=== PATIENT | female | born 1940 | race Caucasian/White ===

== ENCOUNTER → 2017-08-01 | Outpatient (CLI) | payer MEDICARE ==
--- NOTE | 2017-08-01 14:23 | WOMENS IMAGING REPORT ---
EXAM DESCRIPTION: BONE DENSITY HIP/SPINE COMPLETED DATE/TIME: 08/01/2017 1:40 pm REASON FOR STUDY: AGE-RELATED OSTEOPROSIS; M81.0 M81.0 AGE-RELATED OSTEOPOROSIS W/O CURRENT PATHOLO [facility] COMPARISON: December 2003 TECHNIQUE: Dual-Energy X-ray Absorptiometry (DEXA) of the AP Spine and Hip. LIMITATIONS: None. FINDINGS: LUMBAR SPINE: The bone mineral density (BMD) measured from L1-L4 in the AP projection correlates with a T-score of -2.0, which is osteopenia as defined by the World Health Organization. -5.8% decrease as compared to the previous study HIP: The bone mineral density (BMD) measured in the left hip correlates with a T-score of -3.1, which is o steoporosis as defined by the World Health Organization. IMPRESSION: 1. LUMBAR SPINE: Osteopenia 2. HIP: Osteoporosis COMMENT: The World Health Organization defines low BMD as follows: T-score: Normal: Greater than -1.0 Osteopenia: Between -1.0 and -2.5 Osteoporosis: Less than -2.5 without fractures Established osteoporosis: Less than -2.5 with fractures In general, you may wish to consider: Diagnosis Treatment Follow-up DEXA Normal BMD Prevention 2-3 years Osteopenia Prevention/Therapy 1-2 years Osteoporosis Therapy Yearly TECHNICAL DOCUMENTATION: JOB ID: [id number]- All Rights Reserved
== END ==
LOC: WI 13:07
PROVIDERS: ATTEND Internal Medicine
DX: M81.0 Age-related osteoporosis without current pathological fracture (principal)
CPT/HCPCS: 77080

== ENCOUNTER 2018-01-11 18:41 | Inpatient (IN) | payer MEDICARE ==
--- NOTE | 2018-01-11 19:31 | ER Document Report ---
ED General - General Chief Complaint: Abscess Stated Complaint: ABSCESS ON CHEST Time Seen by Provider: 01/11/18 19:20 Mode of Arrival: Medic Information source: Patient Notes: This is a 77-year-old female history of dementia, irritable bowel syndrome, diverticulitis, arthritis. Patient is a resident of the [facility] and was sent over for evaluation of the neck abscess to the anterior neck/upper chest wall. Patient denies fever. She does state that the area is tender. TRAVEL OUTSIDE OF THE [place] IN LAST 30 DAYS: No - HPI Onset: Last week Onset/Duration: Gradual Quality of pain: Dull Severity: Mild Pain Level: 2 Associated symptoms: denies: Chills, Fever, Shortness of breath Exacerbated by: Denies Relieved by: Denies Similar symptoms previously: Yes Recently seen / treated by doctor: Yes - Related Data Allergies/Adverse Reactions: epinephrine [Epinephrine] Adverse Reaction (Mild, Verified 01/11/18 18:47) jittery Past Medical History - General Information source: Transfer Record - Social History Smoking Status: Unknown if Ever Smoked Cigarette use (# per day): No Chew tobacco use (# tins/day): No Frequency of alcohol use: None Drug Abuse: None Lives with: Other - [facility] Family History: Reviewed & Not Pertinent Patient has suicidal ideation: No Patient has homicidal ideation: No - Past Medical History Cardiac Medical History: Denies: Hx Coronary Artery Disease, Hx Heart Attack, Hx Hypertension Pulmonary Medical History: Reports: Hx COPD, Hx Pneumonia Denies: Hx Asthma, Hx Bronchitis Neurological Medical History: Denies: Hx Cerebrovascular Accident, Hx Seizures Renal/ Medical History: Denies: Hx Peritoneal Dialysis Musculoskeltal Medical History: Reports Hx Arthritis - osteo Past Surgical History: Denies: Hx Hysterectomy - Immunizations Hx Diphtheria, Pertussis, Tetanus Vaccination: Yes Review of Systems - Review of Systems Constitutional: denies: Chills, Fever EENT: No symptoms reported Cardiovascular: No symptoms reported Respiratory: No symptoms reported Gastrointestinal: No symptoms reported Genitourinary: No symptoms reported Female Genitourinary: No symptoms reported Musculoskeletal: No symptoms reported Skin: See HPI Hematologic/Lymphatic: No symptoms reported Neurological/Psychological: No symptoms reported Physical Exam - Vital signs Vitals: Temp Pulse Resp BP Pulse Ox 100.3 F 92 18 140/60 H 95 01/11/18 18:45 01/11/18 18:45 01/11/18 18:45 01/11/18 18:45 01/11/18 18:45 Notes: Physical exam: GENERAL: 77-year-old female, alert and oriented 3, no acute distress HEAD: Atraumatic, normocephalic. EYES: Pupils equal round and reactive to light, extraocular movements intact, sclera anicteric, conjunctiva are normal. ENT: TMs normal, nares patent, oropharynx clear without exudates. Moist mucous membranes. NECK: Normal range of motion, supple without obvious mass. Patient has no stridor. Chest: Patient does have an erythematous area of swelling which is 10 cm in the horizontal and 6 cm in the vertical. It located at the sternal clavicular junction. The area is tender it is not obviously fluctuant. LUNGS: Breath sounds clear to auscultation bilaterally and equal. No wheezes rales or rhonchi. HEART: Regular rate and rhythm without murmurs, rubs or gallops. ABDOMEN: Soft, normoactive bowel sounds. No tenderness to palpation. No guarding, no rebound. No masses appreciated. EXTREMITIES: Normal range of motion, no pitting or edema. No clubbing or cyanosis. NEUROLOGICAL: Cranial nerves II through XII grossly intact. Normal speech, moving all extremities. PSYCH: Normal mood, normal affect. SKIN: Warm, Dry, normal turgor, no rashes or lesions noted. Course - Re-evaluation Re-evalutation: 01/11/18 23:36 Note: This is a 77-year-old female with some dementia and recent skin abscesses that was referred from the [facility] for possible abscess right at the base of the neck/superior chest (sternoclavicular junction). She has no difficulty swallowing, no stridor. I did numb the area and inserted an 18-gauge needle and no pus was obtained. The patient was not very cooperative for the procedure (she does move a lot). Given that she does have fever and overlying erythema I started IV vancomycin for cellulitis. Given the swelling, then it very mass may well be an area of pus underneath, so I will get a CT of the neck. She has had fever and her white count is 16,000. The plan will be to admit her to the medicine service for continued IV antibiotics. If there is an abscess, it most likely require general anesthesia (because of the patient's lack of cooperativeness). Therefore, I have contacted Dr. Liriano to admit the patient overnight with continued IV antibiotics. CT of the neck will be done in the emergency room. And if needed, surgery can be consulted in the morning. Again, there is no acute mass-effect. 01/12/18 00:03 Note: We are waiting for urine analysis. The patient has refused straight cath. - Vital Signs Vital signs: Temp Pulse Resp BP Pulse Ox 99.6 F 92 16 104/75 100 01/11/18 22:01 01/11/18 18:45 01/11/18 23:00 01/11/18 23:00 01/11/18 23:00 - Laboratory Result Diagrams: 01/11/18 20:07 01/11/18 20:07 Laboratory results interpreted by me: 01/11/18 01/11/18 20:07 20:07 WBC 16.2 H RBC 3.44 L Hgb 8.3 L Hct 25.7 L MCV 75 L MCH 24.2 L RDW 15.7 H Plt Count 628 H Seg Neutrophils % 89.3 H Lymphocytes % 5.5 L Absolute Neutrophils 14.4 H Glucose 117 H AST 53 H ALT 55 H Alkaline Phosphatase 191 H Albumin 3.3 L Discharge - Discharge Clinical Impression: Cellulitis Condition: Stable Disposition: ADMITTED INPATIENT Admitting Provider: Deandra Unit Admitted: Medical Floor
[2018-01-11 20:17] LABS: ABSOLUTE EOSINOPHILS # (AUTO) 0.1 10^3/uL (0.0-0.6); ABSOLUTE LYMPHOCYTES (AUTO) 0.9 10^3/uL (0.5-4.7); ABSOLUTE MONOCYTES (AUTO) 0.7 10^3/uL (0.1-1.4); ABSOLUTE NEUT (AUTO) 14.4 10^3/uL (1.7-8.2); BASOPHILS % (AUTO) 0.3 % (0-2); EOSINOPHILS % (AUTO) 0.8 % (0-6); HEMATOCRIT 25.7 % (36.0-47.0); HEMOGLOBIN 8.3 g/dL (12.0-15.5); LYMPHOCYTES % (AUTO) 5.5 % (13-45); MEAN CORPUSCULAR HEMOGLOBIN 24.2 pg (27.0-33.4); MEAN CORPUSCULAR HGB CONC 32.4 g/dL (32.0-36.0); MEAN CORPUSCULAR VOLUME 75 fl (80-97); MONOCYTES % (AUTO) 4.1 % (3-13); PLATELET COUNT 628 10^3/uL (150-450); RED BLOOD COUNT 3.44 10^6/uL (3.72-5.28); RED CELL DISTRIBUTION WIDTH 15.7 % (11.5-14.0); SEGMENTED NEUTROPHILS % (AUTO) 89.3 % (42-78); TOTAL CELLS COUNTED % (AUTO) 100 %; WHITE BLOOD COUNT 16.2 10^3/uL (4.0-10.5)
[2018-01-11 20:26] LABS: INTERNATIONAL RATION (INR) 1.09; PROTHROMBIN TIME 14.7 SEC (11.4-15.4)
[2018-01-11 20:31] LABS: ALANINE AMINOTRANSFERASE 55 U/L (9-52); ALBUMIN 3.3 g/dL (3.5-5.0); ALKALINE PHOSPHATASE 191 U/L (38-126); ANION GAP 12 (5-19); ASPARTATE AMINO TRANSFERASE 53 U/L (14-36); BILIRUBIN,DIRECT 0.3 mg/dL (0.0-0.4); BILIRUBIN,TOTAL 0.3 mg/dL (0.2-1.3); BLOOD UREA NITROGEN 14 mg/dL (7-20); CALCIUM 8.9 mg/dL (8.4-10.2); CARBON DIOXIDE 27 mmol/L (22-30); CHLORIDE 104 mmol/L (98-107); GLUCOSE 117 mg/dL (75-110); POTASSIUM 3.7 mmol/L (3.6-5.0); SODIUM 142.7 mmol/L (137-145); TOTAL PROTEIN 7.4 g/dL (6.3-8.2)
[2018-01-11] MEDS ORDERED: VANCOMYCIN HCL INJ 1000 MG VIAL IV ONE (21:07)
[2018-01-11] MEDS ORDERED: LIDOCAINE 1% INJ-PF (10 MG/ML) 30 ML SDV INJ ONE (23:08)
--- NOTE | 2018-01-12 01:58 | RADIOLOGY REPORT (SQ) ---
EXAM DESCRIPTION: CT SOFT TISSUE NECK WITH CLINICAL HISTORY: 77 years Female, abscess COMPARISON: None. TECHNIQUE: IV contrast. Coronal and sagittal reformat. This exam was performed according to our departmental dose-optimization program, which includes automated exposure control, adjustment of the mA and/or kV according to patient size and/or use of iterative reconstruction technique. FINDINGS: Moderate to severe enlargement of the ventricular system partially imaged and may indicate hydrocephalus. 4 x 4 by 5.4 cm complex heterogeneous mass/collection in the subcutaneous soft tissues at the base of the neck anteriorly, anterior to the trachea just below the level of the thyroid; no drainable fluid collection or abscess. Moderate irregular vertebral endplates and sclerosis at the C5-C6 levels; differential diagnosis includes discitis. No evidence of paraspinal fluid collection. 0.3 cm degenerative C3 anterolisthesis. Moderate disc desiccation between the C4 and C7 levels. 0.2 cm degenerative anterolisthesis at the C3 and C7 levels. 2 cm subpleural cyst in the posterior right upper lobe. 0.5 cm osteoma the right sphenoid sinus. Impression: 1. A 5.4 cm complex mass/collection of the anterior neck. Infectious (such as phlegmon) and neoplastic processes are in the differential diagnosis. 2. Moderate hydrocephalus pattern. 3. Abnormal vertebral endplates at the C5-C6 level. Different diagnosis includes discitis. Recommend contrast MRI of the cervical spine.
[2018-01-12] MEDS ORDERED: AMPICILLIN SOD/SULBACTAM 3 GM VIAL IV PRN (02:47)
[2018-01-12] MEDS ORDERED: NORMAL SALINE 1000 ML 1,000 ML IV PRN (02:48)
[2018-01-12] MEDS ORDERED: AMPICILLIN SODIUM/SULBACTAM NA 3 GM in NORMAL SALINE 100 ML IV ONE (03:00)
[2018-01-12 04:58] LABS: ABSOLUTE BASOPHILS # (AUTO) 0.1 10^3/uL (0.0-0.2); ABSOLUTE EOSINOPHILS # (AUTO) 0.1 10^3/uL (0.0-0.6); ABSOLUTE LYMPHOCYTES (AUTO) 0.9 10^3/uL (0.5-4.7); ABSOLUTE MONOCYTES (AUTO) 0.8 10^3/uL (0.1-1.4); ABSOLUTE NEUT (AUTO) 14.6 10^3/uL (1.7-8.2); BASOPHILS % (AUTO) 0.5 % (0-2); EOSINOPHILS % (AUTO) 0.7 % (0-6); HEMATOCRIT 24.7 % (36.0-47.0); LYMPHOCYTES % (AUTO) 5.6 % (13-45); MEAN CORPUSCULAR HEMOGLOBIN 23.8 pg (27.0-33.4); MEAN CORPUSCULAR HGB CONC 31.8 g/dL (32.0-36.0); MEAN CORPUSCULAR VOLUME 75 fl (80-97); MONOCYTES % (AUTO) 4.9 % (3-13); PLATELET COUNT 606 10^3/uL (150-450); RED CELL DISTRIBUTION WIDTH 15.9 % (11.5-14.0); SEGMENTED NEUTROPHILS % (AUTO) 88.3 % (42-78); TOTAL CELLS COUNTED % (AUTO) 100 %; WHITE BLOOD COUNT 16.6 10^3/uL (4.0-10.5)
[2018-01-12 05:04] LABS: HEMOGLOBIN 7.8 g/dL (12.0-15.5)
[2018-01-12 05:05] LABS: ANION GAP 16 (5-19); BLOOD UREA NITROGEN 14 mg/dL (7-20); CALCIUM 8.6 mg/dL (8.4-10.2); CARBON DIOXIDE 22 mmol/L (22-30); CHLORIDE 103 mmol/L (98-107); GLUCOSE 104 mg/dL (75-110); SODIUM 141.3 mmol/L (137-145)
[2018-01-12] MEDS ORDERED: GLUCAGON,HUMAN RECOMB 1 MG INJ SUBCUT PRN (08:00)
[2018-01-12] MEDS ORDERED: DEXTROSE 50%-WATER 25 GM/50 ML DISP.SYRIN IV PRN ×2 (08:00)
[2018-01-12] MEDS ORDERED: DEXTROSE 40% GEL 15 GM TUBE PO PRN ×2 (08:00)
[2018-01-12 08:18] LABS: ABSOLUTE RETICS # 0.026 10^6/uL (0.028-0.122); RETICULOCYTE COUNT (AUTO) 0.81 % (0.66-2.85)
[2018-01-12 09:06] LABS: IRON(TIBC) < 10.1 ug/dL (37-170)
[2018-01-12] MEDS: AMPICILLIN SODIUM/SULBACTAM NA 3 GM in NORMAL SALINE 100 ML IV SCH ×2 (09:11→22:26)
--- NOTE | 2018-01-12 09:14 | RADIOLOGY REPORT (SQ) ---
EXAM DESCRIPTION: CHEST SINGLE VIEW COMPLETED DATE/TIME: 01/12/2018 9:00 am REASON FOR STUDY: preop COMPARISON: 01/13/2016 EXAM PARAMETERS: NUMBER OF VIEWS: One view. TECHNIQUE: Single frontal radiographic view of the chest acquired. RADIATION DOSE: NA LIMITATIONS: None. FINDINGS: LUNGS AND PLEURA: No opacities, masses or pneumothorax. No pleural effusion. MEDIASTINUM AND HILAR STRUCTURES: No masses. Contour normal. HEART AND VASCULAR STRUCTURES: Heart normal in size. Normal vasculature. BONES: No acute findings. HARDWARE: None in the chest. OTHER: No other significant finding. IMPRESSION: NO ACUTE RADIOGRAPHIC FINDING IN THE CHEST. TECHNICAL DOCUMENTATION: JOB ID: [id number] [employer]- All Rights Reserved Reading location - IP/workstation name: [email or web address]
--- NOTE | 2018-01-12 10:05 | PDOC CONSULTATION ---
Consultation Consult Date: 01/12/18 Consult reason:: Neck abscess History of Present Illness Admission Date/PCP: 01/11/18 23:54 LISSETTE THOMPSON MD History of Present Illness: JORGITO FAULKNER is a 77 year old female This emergency department with a reported history of fever white blood cell count elevation, and CT scan findings consistent with a neck abscess. Patient was admitted to the internal medicine service with surgery consulting. Because of patient's dementia due to massive hydrocephalus, she cannot provide HPI. Past Medical History Cardiac Medical History: Denies: Coronary Artery Disease, Myocardial Infarction, Hypertension Pulmonary Medical History: Reports: Chronic Obstructive Pulmonary Disease (COPD) , Pneumonia Denies: Asthma, Bronchitis Neurological Medical History: Denies: Seizures Musculoskeltal Medical History: Reports: Arthritis - osteo Hematology: Denies: Anemia - hx Past Surgical History Past Surgical History: Denies: Hysterectomy Social History Lives with: Other - [facility] Smoking Status: Unknown if Ever Smoked Frequency of Alcohol Use: None Hx Recreational Drug Use: No Drugs: None Hx Prescription Drug Abuse: No - Advance Directive Resuscitation Status: Full Code Family History Family History: Reviewed & Not Pertinent Parental Family History Reviewed: Yes Children Family History Reviewed: Yes Sibling(s) Family History Reviewed.: Yes Medication/Allergy Allergies/Adverse Reactions: epinephrine [Epinephrine] Adverse Reaction (Mild, Verified 01/11/18 18:47) jittery Review of Systems ROS unobtainable: Due to mental status Physical Exam Vital Signs: Temp Pulse Resp BP Pulse Ox 97.4 F 89 20 125/58 L 96 01/12/18 07:34 01/12/18 07:34 01/12/18 07:34 01/12/18 07:34 01/12/18 07:34 Intake & Output 01/11/18 01/12/18 01/13/18 06:59 06:59 06:59 Intake Total 110 Balance 110 Weight 45.1 kg General appearance: PRESENT: no acute distress, other - However when she arouses she is mildly combative Head exam: PRESENT: atraumatic Teeth exam: PRESENT: poor dentation Respiratory exam: PRESENT: clear to auscultation aaron Cardiovascular exam: PRESENT: RRR Torso Front/Back Image: 1 - Over the lower neck upper chest covering area approximately 6-7 cm is an area, tender soft tissue elevation predominantly over the sternum. These are significant for probable abscess. Results Laboratory Results: 01/12/18 03:49 01/12/18 03:49 01/12/18 01/12/18 01/12/18 03:49 03:49 03:49 WBC 16.6 H RBC 3.30 L Hgb 7.8 L Hct 24.7 L MCV 75 L MCH 23.8 L MCHC 31.8 L RDW 15.9 H Plt Count 606 H Seg Neutrophils % 88.3 H Lymphocytes % 5.6 L Monocytes % 4.9 Eosinophils % 0.7 Basophils % 0.5 Absolute Neutrophils 14.6 H Absolute Lymphocytes 0.9 Absolute Monocytes 0.8 Absolute Eosinophils 0.1 Absolute Basophils 0.1 Retic Count (auto) 0.81 Absolute Retic 0.026 L Sodium 141.3 Potassium 4.0 Chloride 103 Carbon Dioxide 22 Anion Gap 16 BUN 14 Creatinine 0.72 Est GFR ( Amer) > 60 Est GFR (Non-Af Amer) > 60 Glucose 104 Calcium 8.6 Iron TIBC % Saturation Ferritin Vitamin B12 Folate 01/12/18 03:49 WBC RBC Hgb Hct MCV MCH MCHC RDW Plt Count Seg Neutrophils % Lymphocytes % Monocytes % Eosinophils % Basophils % Absolute Neutrophils Absolute Lymphocytes Absolute Monocytes Absolute Eosinophils Absolute Basophils Retic Count (auto) Absolute Retic Sodium Potassium Chloride Carbon Dioxide Anion Gap BUN Creatinine Est GFR ( Amer) Est GFR (Non-Af Amer) Glucose Calcium Iron < 10.1 L TIBC 231 L % Saturation UNABLE TO CALCULATE Ferritin 173.00 Vitamin B12 > 1000.0 H Folate 12.10 Impressions: Chest X-Ray 01/12/18 00:00 IMPRESSION: NO ACUTE RADIOGRAPHIC FINDING IN THE CHEST. Assessment & Plan - Diagnosis (1) Neck abscess Is this a current diagnosis for this admission?: Yes Plan: Clinically and radiographically the patient has a phlegmonous neck abscess involving the soft tissue of the sternal area. This deserves incision drainage and packing. She also has a small abscess front of her left ear. This appears to the resolving. Recommendations: 1. Patient deserves incision drainage packing of the abscess. She cannot provide informed consent. She has no family and we have researched her background and verify this. Therefore we will use implied consent based on the judgment of 2 physicians. I have spoken to Dr. Thompson about the above and he agrees to proceed. 2. The patient's CT scan interpretation of the cervical spine suggested possible discitis. Reviewed the CT scan with Dr. Danis Lee who believes the likelihood of cervical discitis is low. Given the clinical history of anterior neck abscess in need of attention now, as well as the history of dementia agitation and combativeness, we will not proceed with MRI scan of her neck. (2) Hydrocephalus Is this a current diagnosis for this admission?: Yes (3) Severe dementia Is this a current diagnosis for this admission?: Yes Plan: Neck abscess - Time Time Spent: 50 to 70 Minutes Smoking Cessation Education: over 10 minutes Anticipated discharge: SNF - Inpatient Certification Based on my medical assessment, after consideration of the patient's comorbidities, presenting symptoms, or acuity I expect that the services needed warrant INPATIENT care.: Yes I certify that my determination is in accordance with my understanding of Medicare's requirements for reasonable and necessary INPATIENT services [42 CFR 412.3e].: Yes Medical Necessity: Need For IV Fluids, Need for IV Antibiotics, Need for Surgery
[2018-01-12] MEDS ORDERED: LIDOCAINE 1% INJ-PF (10 MG/ML) 30 ML SDV ONE (10:48)
[2018-01-12] MEDS ORDERED: KETAMINE HCL INJ 500 MG/10 ML VIAL ONE (10:50)
[2018-01-12] MEDS ORDERED: FENTANYL CITRATE INJ/PF 100 MCG/2 ML AMPUL ONE (10:51)
[2018-01-12] MEDS ORDERED: PROPOFOL INJ 200 MG/20 ML VIAL IV ONE (10:51)
[2018-01-12] MEDS ORDERED: MIDAZOLAM 2 MG/2 ML INJ ONE (10:51)
--- NOTE | 2018-01-12 12:36 | Operative Report ---
Operative Report DATE OF SURGERY: 01/12/18 PREOPERATIVE DIAGNOSIS: 1. Large anterior neck-chest wall abscess. 2. Draining left preauricular facial abscess POSTOPERATIVE DIAGNOSIS: Same extension to the left para tracheal space OPERATION: 1. Excisional debridement of skin, subcutaneous tissue, breakup of loculations suprasternal area, left paratracheal area. 2. Excisional debridement drainage of left preauricular abscess SURGEON: ANSON RIVERA ANESTHESIA: LMAC TISSUE REMOVED OR ALTERED: Nonviable skin and subcutaneous tissue and pus COMPLICATIONS: None ESTIMATED BLOOD LOSS: 10 cc INTRAOPERATIVE FINDINGS: See below PROCEDURE: Preoperative history: Patient who has a history of dementia was admitted to the internal medicine service with sepsis due to anterior chest wall-neck abscess and spontaneously draining left preauricular abscess. Patient could not provide informed consent so consent was provided by Drs. Rivera and Kuldeep based on the emergent need of the procedure. The patient was taken to the operating room where LMAC anesthesia was used. Arms were abducted, upper anterior chest and neck and left preauricular area was prepped with Betadine. Surgical plan surgical timeout were conducted. The findings on the anterior chest just above the sternum was significant for erythematous edematous tender swelling approximately 8 cm in diameter horizontally and 6 cm vertically. I anesthetized the skin and deeper tissue with 1% plain lidocaine. I made approximately 4-1/2 cm incision with a #15 blade transversely and immediately got into pus. We opened up the deeper tissues bluntly. I use my index finger to break up loculations inferiorly over the anterior chest, specifically the manubrium, as well as above the sternal notch. The infection, creamy pus, oozed out between the subcutaneous tissue and the strap muscles of the neck. There was a small pocket above the right sternoclavicular junction, and a deeper pocket to the left of the trachea. These areas were broken up with finger dissection. Bleeding was minimal. There did not appear to be any communication with the trachea or the esophagus as both structures were deeper and more posterior to the apparent extent of infection. We irrigated out the wound copiously impacted with 1/2 inch iodoform packing. The incision was left open. We then approached the left preauricular abscess which had already spontaneously drained. We need to excise the collapsed overlying nonviable skin with 1% plain lidocaine and excised all the nonviable skin, and curetted out the granulation tissue from the bed of the abscess which is approximately 0.5 x 3 cm x 0.5 cm deep. Wound was irrigated with saline, and packed with iodoform packing. This was applied, patient tolerated the procedure well and taken to recovery in stable condition.
[2018-01-12] MEDS ORDERED: PROMETHAZINE HCL INJ 25 MG/1 ML VIAL IV PRN (12:42)
[2018-01-12] MEDS ORDERED: DIPHENHYDRAMINE HCL 50 MG/ML VIAL IV PRN (12:42)
[2018-01-12] MEDS ORDERED: FENTANYL CITRATE INJ/PF 100 MCG/2 ML AMPUL IV PRN ×3 (12:42)
[2018-01-12] MEDS ORDERED: ONDANSETRON HCL INJ/PF 4 MG/2 ML SDV IV PRN (12:42)
--- NOTE | 2018-01-12 12:56 | EKG REPORT ---
SEVERITY:- NORMAL ECG - SINUS RHYTHM : Confirmed by: Estevan Josue MD 12-Jan-2018 12:54:53
[2018-01-12] MEDS ORDERED: (PENDING PHARMACY ID) (Sennosides [Senna] 17.2 MG) PO PRN (14:04)
[2018-01-12] MEDS ORDERED: LORAZEPAM 0.5 MG TABLET PO PRN (14:04)
[2018-01-12] MEDS ORDERED: SENNOSIDES/DOCUSATE 8.6-50 MG 1 EACH TABLET PO PRN (14:32)
[2018-01-12] MEDS ORDERED: LIDOCAINE 2% INJ-PF (20 MG/ML) 2 ML AMPUL ONE (15:23)
[2018-01-12] MEDS ORDERED: OXYCODONE-ACETAMINOPHEN 5-325 MG TABLET PO PRN (17:40)
[2018-01-12] MEDS ORDERED: (PENDING PHARMACY ID) (Calcium Carbonate/Vitamin D3 [Oyster Shell 500-Vit D3 200 Tb] 1 TAB PO SCH (18:00)
[2018-01-12] MEDS ORDERED: DOCUSATE SODIUM 100 MG CAPSULE PO SCH (18:00)
[2018-01-12] MEDS: CALCIUM CARBONATE 250 MG/VITAMIN D3 125 UNIT TABLET PO SCH (19:39)
[2018-01-12] MEDS: DOCUSATE SODIUM 100 MG CAPSULE PO SCH (19:39)
[2018-01-12] MEDS: FAMOTIDINE 20 MG TABLET PO SCH (19:39)
[2018-01-12] MEDS ORDERED: NORMAL SALINE 250 ML IV PRN ×2 (20:24)
--- NOTE | 2018-01-12 20:24 | PDOC H&P ---
History of Present Illness Admission Date/PCP: 01/11/18 23:54 LISSETTE THOMPSON MD History of Present Illness: JORGITO FAULKNER is a 77 year old female, She has baseline dementia, severe osteoporosis ,undernutrition she was referred from [facility] to the emergency room for evaluation and management of abscess in the anterior chest wall and the neck in the emergency room she was evaluated, CT of the neck was done showed a 4 x 4 x 5.4 cm complex heterogeneous mass/collection in the cutaneous soft tissue at the base of the neck anteriorly. She was also found to have severe leukocytosis, microcytic anemia.Patient is a poor historian, patient could not describe how this abscess started, the duration or the circumstances of the abscess. This morning, consultation was obtained from surgery, she was taken to the OR she underwent excisional debridement of the skin with breakup of loculations in the suprasternal area also was debridement drainage of the left preauricular abscess Past Medical History Pulmonary Medical History: Reports: Chronic Obstructive Pulmonary Disease (COPD) , Pneumonia Endocrine Medical History: Reports: Other - Osteoporosis Musculoskeltal Medical History: Reports: Arthritis - osteo Past Surgical History Past Surgical History: Denies: Hysterectomy Social History Lives with: Other - [facility] Smoking Status: Current Some Day Smoker Frequency of Alcohol Use: None Hx Recreational Drug Use: No Drugs: None Hx Prescription Drug Abuse: No - Advance Directive Resuscitation Status: Full Code Family History Family History: Reviewed & Not Pertinent Parental Family History Reviewed: Yes Children Family History Reviewed: Yes Sibling(s) Family History Reviewed.: Yes Medication/Allergy Home Medications: Acetaminophen [Tylenol Extra Strength 500 mg Tablet] 1,000 mg PO Q8 01/12/18 Alendronate Sodium [Fosamax 10 mg Tablet] 10 mg PO [id number] 01/12/18 Calcium Carbonate/Vitamin D3 [Oyster Shell 500-Vit D3 200 Tb] 1 tab PO BID 01/12 Cetirizine HCl [Zyrtec 10 mg Tablet] 10 mg PO DAILY 01/12/18 Doxycycline Hyclate [Vibramycin] 50 mg PO BID 01/12/18 Famotidine [Pepcid 20 mg Tablet] 20 mg PO BID 01/12/18 Lorazepam [Ativan 0.5 mg Tablet] 0.25 mg PO DAILYP PRN 01/12/18 Memantine HCl [Namenda] 5 mg PO DAILY 01/12/18 Mirtazapine [Remeron 15 mg Tablet] 7.5 mg PO QHS 01/12/18 Multivitamin [Tab-A-Willie (Multiple Vitamin) Tablet] 1 tab PO DAILY 01/12/18 Omeprazole 20 mg PO DAILY 01/12/18 Oxybutynin Chloride [Ditropan 5 mg Tablet] 5 mg PO DAILY 01/12/18 Paroxetine HCl [Paxil 20 mg Tablet] 20 mg PO DAILY 01/12/18 Polyethylene Glycol 3350 [Miralax Powder 17 gm/Packet] 17 gm PO DAILY 01/12/18 Pravastatin Sodium [Pravachol] 40 mg PO DAILY 01/12/18 Sennosides [Senna] 17.2 mg PO DAILYP PRN 01/12/18 Sertraline HCl [Zoloft 50 mg Tablet] 50 mg PO DAILY 01/12/18 Allergies/Adverse Reactions: epinephrine [Epinephrine] Adverse Reaction (Mild, Verified 01/11/18 18:47) jittery Review of Systems Constitutional: ABSENT: chills, fever(s), headache(s), weight gain, weight loss Eyes: ABSENT: visual disturbances Ears: ABSENT: hearing changes Cardiovascular: PRESENT: chest pain. ABSENT: dyspnea on exertion, edema, orthropnea, palpitations Respiratory: ABSENT: cough, hemoptysis Gastrointestinal: ABSENT: as per HPI, abdominal pain, bloating, coffee ground emesis, constipation, diarrhea, dysphagia, heartburn, hematemesis, hematochezia , melena, nausea, vomiting, other Genitourinary: ABSENT: dysuria, hematuria Musculoskeletal: ABSENT: joint swelling Integumentary: ABSENT: rash, wounds Neurological: ABSENT: abnormal gait, abnormal speech, confusion, dizziness, focal weakness, syncope Psychiatric: ABSENT: anxiety, depression, homidical ideation, suicidal ideation Endocrine: ABSENT: cold intolerance, heat intolerance, menstrual abnormalities, polydipsia, polyuria Hematologic/Lymphatic: ABSENT: easy bleeding, easy bruising, lymphadenopathy Physical Exam Vital Signs: Temp Pulse Resp BP Pulse Ox 97.8 F 75 15 120/62 99 01/12/18 19:54 01/12/18 19:54 01/12/18 19:54 01/12/18 19:54 01/12/18 19:54 Intake & Output 01/11/18 01/12/18 01/13/18 06:59 06:59 06:59 Intake Total 110 760 Output Total 5 Balance 110 755 Weight 45.1 kg Head exam: PRESENT: atraumatic, normocephalic Eye exam: PRESENT: PERRLA. ABSENT: scleral icterus Neck exam: PRESENT: other - Abscess in the anterior neck, Respiratory exam: PRESENT: chest wall tenderness, clear to auscultation aaron, other - Abscess in the anterior chest wall Cardiovascular exam: PRESENT: RRR, +S1, +S2 Vascular exam: PRESENT: normal capillary refill GI/Abdominal exam: PRESENT: soft Rectal exam: PRESENT: deferred Neurological exam: PRESENT: alert Skin exam: PRESENT: dry, intact, warm. ABSENT: cyanosis, rash Results Laboratory Results: 01/12/18 03:49 01/12/18 03:49 01/12/18 01/12/18 01/12/18 03:49 03:49 03:49 WBC 16.6 H RBC 3.30 L Hgb 7.8 L Hct 24.7 L MCV 75 L MCH 23.8 L MCHC 31.8 L RDW 15.9 H Plt Count 606 H Seg Neutrophils % 88.3 H Lymphocytes % 5.6 L Monocytes % 4.9 Eosinophils % 0.7 Basophils % 0.5 Absolute Neutrophils 14.6 H Absolute Lymphocytes 0.9 Absolute Monocytes 0.8 Absolute Eosinophils 0.1 Absolute Basophils 0.1 Retic Count (auto) 0.81 Absolute Retic 0.026 L Sodium 141.3 Potassium 4.0 Chloride 103 Carbon Dioxide 22 Anion Gap 16 BUN 14 Creatinine 0.72 Est GFR ( Amer) > 60 Est GFR (Non-Af Amer) > 60 Glucose 104 Calcium 8.6 Iron TIBC % Saturation Ferritin Vitamin B12 Folate 01/12/18 03:49 WBC RBC Hgb Hct MCV MCH MCHC RDW Plt Count Seg Neutrophils % Lymphocytes % Monocytes % Eosinophils % Basophils % Absolute Neutrophils Absolute Lymphocytes Absolute Monocytes Absolute Eosinophils Absolute Basophils Retic Count (auto) Absolute Retic Sodium Potassium Chloride Carbon Dioxide Anion Gap BUN Creatinine Est GFR ( Amer) Est GFR (Non-Af Amer) Glucose Calcium Iron < 10.1 L TIBC 231 L % Saturation UNABLE TO CALCULATE Ferritin 173.00 Vitamin B12 > 1000.0 H Folate 12.10 Impressions: Chest X-Ray 01/12/18 00:00 IMPRESSION: NO ACUTE RADIOGRAPHIC FINDING IN THE CHEST. Assessment & Plan - Diagnosis (1) Neck abscess Is this a current diagnosis for this admission?: Yes Plan: Patient empirically started on IV Unasyn, status post incision and drainage awaiting culture results (2) Chest wall abscess Is this a current diagnosis for this admission?: Yes (3) Iron deficiency anemia Qualifiers: Iron deficiency anemia type: chronic blood loss Qualified Code(s): D50.0 - Iron deficiency anemia secondary to blood loss (chronic) Is this a current diagnosis for this admission?: Yes Plan: Transfuse with 2 units of packed red blood cells, GI consultation will be obtained for colonoscopy and EGD, obtain CEA level (4) Undernutrition Is this a current diagnosis for this admission?: Yes (5) Osteoporosis Qualifiers: Osteoporosis type: age-related (6) Hydrocephalus Is this a current diagnosis for this admission?: Yes (7) Dementia Qualifiers: Dementia type: unspecified type Dementia behavioral disturbance: without behavioral disturbance Qualified Code(s): F03.90 - Unspecified dementia without behavioral disturbance Is this a current diagnosis for this admission?: Yes
[2018-01-12 21:03] LABS: INTERNATIONAL RATION (INR) 1.13; PROTHROMBIN TIME 15.1 SEC (11.4-15.4)
--- NOTE | 2018-01-12 21:15 | RADIOLOGY REPORT (SQ) ---
EXAM DESCRIPTION: MRI CERVICAL SPINE COMBO COMPLETED DATE/TIME: 01/12/2018 7:55 pm REASON FOR STUDY: ? disciitis of the C4-C5 COMPARISON: Correlation made to CT from 01/11/2018 TECHNIQUE: Sagittal and Axial imaging includes T1, T2, STIR and gradient echo sequences. T1 post alvin olinium sequences. CONTRAST TYPE AND DOSE: 10 mL Multihance. RENAL FUNCTION: GFR > 60. LIMITATIONS: Evaluation is limited due to patient motion. FINDINGS: ALIGNMENT: Normal. VERTEBRAE: Intact. BONE MARROW: Benign intraosseous hemangioma seen within the T3 vertebral body. Acute on chronic endp late change at the C5-C6 level additional chronic endplate change at C6-C7. DISCS: Advanced multilevel degenerative disc disease. HARDWARE: None in the spine. CORD AND BASE OF BRAIN: Normal in size and signal intensity. SOFT TISSUES: There is a complex fluid collection noted within the prevertebral space extending from the C2 through C5 levels measuring 1.9 x 1.4 x 6.2 cm (transverse by AP by craniocaudal. Surgical ch lenin involving the anterior soft tissues of the neck compatible with recent debridement. C1-C2: No significant spinal stenosis. C2-C3: Disc osteophyte with uncinate joint hypertrophy resulting in mild to moderate bilateral neural foraminal narrowing. No significant spinal canal stenosis. C3-C4: Disc osteophyte, uncinate joint hypertrophy, and facet arthropathy resulting in at least moder ate bilateral neural foraminal narrowing and mild to moderate spinal canal stenosis. C4-C5: Surgically versus congenitally fused with minimal disc osteophyte and uncinate joint hypertrop hy. No significant spinal canal stenosis or neural foraminal narrowing. C5-C6: Moderate to large diffuse disc osteophyte with bilateral uncinate joint hypertrophy and facet arthropathy. There is at least moderate spinal canal stenosis. There is moderate to severe bilatera l neural foraminal narrowing, left greater than right. C6-C7: Diffuse disc osteophyte and uncinate joint hypertrophy with facet arthropathy. There is moder ate to severe bilateral neural foraminal narrowing. No significant spinal canal stenosis. C7-T1: No significant spinal stenosis or exit foraminal stenosis. UPPER THORACIC: Incompletely imaged. No significant spinal stenosis or exit foraminal stenosis. ENHANCEMENT: Enhancement within the prevertebral soft tissues compatible with phlegmon/ abscess. Min imal enhancement associated with active endplate change C5-C6. OTHER: No other significant finding. IMPRESSION: 6.2 CM COMPLEX FLUID COLLECTION WITHIN THE PREVERTEBRAL SPACE EXTENDING FROM C2-3 C5 COM PATIBLE WITH PHLEGMON/ABSCESS. SURGICAL CONSULTATION IS RECOMMENDED. ADVANCED MULTILEVEL DEGENERATIVE CHANGE OF THE CERVICAL SPINE MOST SEVERE AT THE C3-C4 AND C5-C6 LEVE LS WERE THERE IS AT LEAST MODERATE SPINAL CANAL STENOSIS AND MODERATE SEVERE NEURAL FORAMINAL NARROWI NG. THERE IS ACUTE ON CHRONIC ENDPLATE CHANGE AT C5-C6 WITHOUT DEFINITE MR EVIDENCE OF OSTEOMYELITIS . COMMENT: None. TECHNICAL DOCUMENTATION: JOB ID: [id number] [employer]- All Rights Reserved Reading location - IP/workstation name: [email or web address]
[2018-01-12 21:33] LABS: LIPASE 51.4 U/L (23-300); PHOSPHORUS 3.5 mg/dL (2.5-4.5)
[2018-01-12 21:44] LABS: TROPONIN I < 0.012 ng/mL
[2018-01-12 21:45] LABS: FREE T4 (FREE THYROXINE) 1.33 ng/dL (0.78-2.19)
[2018-01-12 21:59] LABS: THYROID STIMULATING HORMONE 0.82 uIU/mL (0.47-4.68)
[2018-01-12] MEDS ORDERED: (PENDING PHARMACY ID) (Acetaminophen [Tylenol Extra Strength 500 Mg Tablet] 1,000 MG) PO SCH (22:00)
[2018-01-12] MEDS: ACETAMINOPHEN 325 MG TABLET PO SCH (22:24)
[2018-01-12] MEDS: MIRTAZAPINE 15 MG TABLET PO SCH (22:26)
[2018-01-12] MEDS: ATORVASTATIN CALCIUM 10 MG TABLET PO SCH (22:27)
[2018-01-13 02:55] LABS: CREATINE KINASE MB 0.52 ng/mL (<4.55)
[2018-01-13 02:57] LABS: TROPONIN I < 0.012 ng/mL
[2018-01-13] MEDS: LANSOPRAZOLE 15 MG TAB.RAP.DR PO SCH (06:14)
[2018-01-13] MEDS: ACETAMINOPHEN 325 MG TABLET PO SCH ×3 (06:14→23:30)
[2018-01-13] MEDS: AMPICILLIN SODIUM/SULBACTAM NA 3 GM in NORMAL SALINE 100 ML IV SCH ×3 (06:15→23:30)
[2018-01-13 07:21] LABS: HEMATOCRIT 33.4 % (36.0-47.0); MEAN CORPUSCULAR HEMOGLOBIN 26.7 pg (27.0-33.4); MEAN CORPUSCULAR HGB CONC 33.7 g/dL (32.0-36.0); PLATELET COUNT 559 10^3/uL (150-450); RED BLOOD COUNT 4.22 10^6/uL (3.72-5.28); RED CELL DISTRIBUTION WIDTH 16.9 % (11.5-14.0); WHITE BLOOD COUNT 9.1 10^3/uL (4.0-10.5)
[2018-01-13 07:23] LABS: HEMOGLOBIN 11.3 g/dL (12.0-15.5); MEAN CORPUSCULAR VOLUME 79 fl (80-97)
[2018-01-13 07:54] LABS: ABSOLUTE LYMPHOCYTES# (MANUAL) 1.5 10^3/uL (0.5-4.7); ABSOLUTE MONOCYTES # (MANUAL) 0.5 10^3/uL (0.1-1.4); ABSOLUTE NEUTROPHILS# (MANUAL) 6.9 10^3/uL (1.7-8.2); BASOPHILS % (MANUAL) 0 % (0-2); EOSINOPHILS % (MANUAL) 2 % (0-6); LYMPHOCYTES % (MANUAL) 17 % (13-45); MONOCYTES % (MANUAL) 5 % (3-13); SEGMENTED NEUTROPHILS % (MAN) 76 % (42-78); TOTAL CELLS COUNTED 100
[2018-01-13 07:57] LABS: ANISOCYTOSIS 1+; HYPOCHROMASIA SLIGHT; PLATELET CLUMPS PRESENT; PLATELET COMMENT INCREASED; PLATELET LARGE PRESENT
[2018-01-13 08:35] LABS: ALANINE AMINOTRANSFERASE 49 U/L (9-52); ALBUMIN 2.9 g/dL (3.5-5.0); ALKALINE PHOSPHATASE 164 U/L (38-126); ANION GAP 11 (5-19); ASPARTATE AMINO TRANSFERASE 37 U/L (14-36); BILIRUBIN,DIRECT 0.4 mg/dL (0.0-0.4); BILIRUBIN,TOTAL 0.4 mg/dL (0.2-1.3); BLOOD UREA NITROGEN 14 mg/dL (7-20); CALCIUM 8.6 mg/dL (8.4-10.2); CARBON DIOXIDE 26 mmol/L (22-30); CHLORIDE 108 mmol/L (98-107); GLUCOSE 84 mg/dL (75-110); POTASSIUM 3.6 mmol/L (3.6-5.0); SODIUM 144.6 mmol/L (137-145); TOTAL PROTEIN 6.1 g/dL (6.3-8.2)
[2018-01-13 08:46] LABS: CREATINE KINASE MB 0.72 ng/mL (<4.55)
[2018-01-13 08:49] LABS: TROPONIN I < 0.012 ng/mL
[2018-01-13] MEDS: CALCIUM CARBONATE 250 MG/VITAMIN D3 125 UNIT TABLET PO SCH ×2 (09:46→18:14)
[2018-01-13] MEDS: CETIRIZINE 10 MG TABLET PO SCH (09:46)
[2018-01-13] MEDS: PAROXETINE HCL 20 MG TABLET PO SCH (09:46)
[2018-01-13] MEDS: FAMOTIDINE 20 MG TABLET PO SCH ×2 (09:46→18:14)
[2018-01-13] MEDS: DOCUSATE SODIUM 100 MG CAPSULE PO SCH ×2 (09:46→18:14)
[2018-01-13] MEDS: SERTRALINE HCL 50 MG TABLET PO SCH (09:47)
[2018-01-13] MEDS: ALENDRONATE SODIUM 10 MG TABLET PO SCH (09:47)
[2018-01-13] MEDS: OXYBUTYNIN CHLORIDE 5 MG TABLET PO SCH (09:47)
[2018-01-13] MEDS: MULTIVITAMIN TABLET PO SCH (09:48)
[2018-01-13] MEDS: MEMANTINE HCL 10 MG TABLET PO SCH (09:48)
[2018-01-13] MEDS: POLYETHYLENE GLYCOL 3350 POWDER 17 GM/1 PACKET PO SCH (09:48)
[2018-01-13] MEDS: ENOXAPARIN SODIUM INJ 40 MG/0.4 ML DISP.SYRIN SUBCUT SCH (09:49)
[2018-01-13] MEDS ORDERED: (PENDING PHARMACY ID) (Pravastatin Sodium [Pravachol] 40 MG) PO SCH (10:00)
[2018-01-13] MEDS ORDERED: (PENDING PHARMACY ID) (Memantine Hcl [Namenda] 5 MG) PO SCH (10:00)
--- NOTE | 2018-01-13 10:40 | PDOC PROGRESS REPORT ---
Subjective Progress Note for:: 01/13/18 Reason For Visit: ABSCESS IN THE ANTERIOR CHEST WALL AND THE NECK Physical Exam Vital Signs: Temp Pulse Resp BP Pulse Ox 97.7 F 70 18 129/65 H 100 01/13/18 07:52 01/13/18 07:52 01/13/18 07:52 01/13/18 07:52 01/13/18 07:52 Intake & Output 01/12/18 01/13/18 01/14/18 06:59 06:59 06:59 Intake Total 110 1960 Output Total 5 Balance 110 1955 Weight 45.1 kg 50 kg Results Laboratory Results: 01/13/18 06:38 01/13/18 08:00 01/12/18 01/12/18 01/12/18 20:36 20:36 20:36 WBC RBC Hgb Hct MCV MCH MCHC RDW Plt Count Seg Neutrophils % Lymphocytes % Monocytes % Eosinophils % Basophils % Absolute Neutrophils Absolute Lymphocytes Absolute Monocytes Absolute Eosinophils Absolute Basophils Sodium Potassium Chloride Carbon Dioxide Anion Gap BUN Creatinine Est GFR ( Amer) Est GFR (Non-Af Amer) Glucose Calcium Phosphorus 3.5 Magnesium 2.2 Total Bilirubin AST ALT Alkaline Phosphatase Ammonia < 8.7 L Total Protein Albumin Amylase 45 Lipase 51.4 TSH 0.82 Free T4 1.33 Blood Type Antibody Screen 01/12/18 01/13/18 01/13/18 20:55 06:38 06:38 WBC 9.1 RBC 4.22 Hgb 11.3 L D Hct 33.4 L MCV 79 L D MCH 26.7 L MCHC 33.7 RDW 16.9 H Plt Count 559 H Seg Neutrophils % Not Reportable Lymphocytes % Not Reportable Monocytes % Not Reportable Eosinophils % Not Reportable Basophils % Not Reportable Absolute Neutrophils Not Reportable Absolute Lymphocytes Not Reportable Absolute Monocytes Not Reportable Absolute Eosinophils Not Reportable Absolute Basophils Not Reportable Sodium Cancelled Potassium Cancelled Chloride Cancelled Carbon Dioxide Cancelled Anion Gap Cancelled BUN Cancelled Creatinine Cancelled Est GFR ( Amer) Cancelled Est GFR (Non-Af Amer) Cancelled Glucose Cancelled Calcium Cancelled Phosphorus Magnesium Total Bilirubin Cancelled AST Cancelled ALT Cancelled Alkaline Phosphatase Cancelled Ammonia Total Protein Cancelled Albumin Cancelled Amylase Lipase TSH Free T4 Blood Type O POSITIVE Antibody Screen NEGATIVE 01/13/18 08:00 WBC RBC Hgb Hct MCV MCH MCHC RDW Plt Count Seg Neutrophils % Lymphocytes % Monocytes % Eosinophils % Basophils % Absolute Neutrophils Absolute Lymphocytes Absolute Monocytes Absolute Eosinophils Absolute Basophils Sodium 144.6 Potassium 3.6 Chloride 108 H Carbon Dioxide 26 Anion Gap 11 BUN 14 Creatinine 0.74 Est GFR ( Amer) > 60 Est GFR (Non-Af Amer) > 60 Glucose 84 Calcium 8.6 Phosphorus Magnesium Total Bilirubin 0.4 AST 37 H ALT 49 Alkaline Phosphatase 164 H Ammonia Total Protein 6.1 L Albumin 2.9 L Amylase Lipase TSH Free T4 Blood Type Antibody Screen 01/12/18 01/12/18 01/12/18 20:36 20:36 20:36 Creatine Kinase 29 L CK-MB (CK-2) 0.60 Troponin I < 0.012 NT-Pro-B Natriuret Pep 466 H 01/13/18 01/13/18 01/13/18 02:25 02:25 08:00 Creatine Kinase 25 L 26 L CK-MB (CK-2) 0.52 Troponin I < 0.012 NT-Pro-B Natriuret Pep 01/13/18 08:00 Creatine Kinase CK-MB (CK-2) 0.72 Troponin I < 0.012 NT-Pro-B Natriuret Pep Impressions: Cervical Spine MRI 01/12/18 00:00 IMPRESSION: 6.2 CM COMPLEX FLUID COLLECTION WITHIN THE PREVERTEBRAL SPACE EXTENDING FROM C2-3 C5 COMPATIBLE WITH PHLEGMON/ABSCESS. SURGICAL CONSULTATION IS RECOMMENDED. 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 THERE IS ACUTE ON CHRONIC ENDPLATE CHANGE AT C5-C6 WITHOUT DEFINITE MR EVIDENCE OF OSTEOMYELITIS. Chest X-Ray 01/12/18 00:00 IMPRESSION: NO ACUTE RADIOGRAPHIC FINDING IN THE CHEST. Assessment & Plan - Plan Summary Plan Summary: This is a 77-year-old female status post incision and drainage of a chest wall abscess, as well as a left face abscess. The dressing was removed today, and the packing was removed. Abscess cavity is without further purulent drainage. There is no significant erythema or induration present. The cavity was repacked with 4 x 4 gauze. I have instituted damp to dry dressing changes twice daily with packing. Continue antibiotics. Continue dressing changes. Will follow.
--- NOTE | 2018-01-13 17:08 | PDOC PROGRESS REPORT ---
Subjective Progress Note for:: 01/13/18 Subjective:: She was seen by the bedside, yesterday she had incision and drainage of abscesses in the neck and the chest wall, she was also transfused with 2 units of packed red blood cells due to iron deficiency anemia. Reason For Visit: ABSCESS IN THE ANTERIOR CHEST WALL AND THE NECK Physical Exam Vital Signs: Temp Pulse Resp BP Pulse Ox 98.4 F 95 16 117/55 L 98 01/13/18 16:41 01/13/18 16:41 01/13/18 16:41 01/13/18 16:41 01/13/18 16:41 Intake & Output 01/12/18 01/13/18 01/14/18 06:59 06:59 06:59 Intake Total 110 1960 266 Output Total 5 Balance 110 1955 266 Weight 45.1 kg 50 kg General appearance: PRESENT: thin Head exam: PRESENT: atraumatic Eye exam: PRESENT: PERRLA Respiratory exam: PRESENT: clear to auscultation aaron Cardiovascular exam: PRESENT: RRR, +S1, +S2 GI/Abdominal exam: PRESENT: normal bowel sounds, soft Rectal exam: PRESENT: deferred Neurological exam: PRESENT: alert Psychiatric exam: PRESENT: appropriate affect, normal mood Skin exam: PRESENT: dry, intact, warm. ABSENT: cyanosis, rash Results Laboratory Results: 01/13/18 06:38 01/13/18 08:00 01/12/18 01/12/18 01/12/18 03:49 20:36 20:36 WBC RBC Hgb Hct MCV MCH MCHC RDW Plt Count Seg Neutrophils % Lymphocytes % Monocytes % Eosinophils % Basophils % Absolute Neutrophils Absolute Lymphocytes Absolute Monocytes Absolute Eosinophils Absolute Basophils Sodium Potassium Chloride Carbon Dioxide Anion Gap BUN Creatinine Est GFR ( Amer) Est GFR (Non-Af Amer) Glucose Calcium Phosphorus 3.5 Magnesium 2.2 Transferrin 143 L Total Bilirubin AST ALT Alkaline Phosphatase Ammonia Total Protein Albumin Amylase 45 Lipase 51.4 TSH 0.82 Free T4 1.33 Blood Type Antibody Screen 01/12/18 01/12/18 01/13/18 20:36 20:55 06:38 WBC 9.1 RBC 4.22 Hgb 11.3 L D Hct 33.4 L MCV 79 L D MCH 26.7 L MCHC 33.7 RDW 16.9 H Plt Count 559 H Seg Neutrophils % Not Reportable Lymphocytes % Not Reportable Monocytes % Not Reportable Eosinophils % Not Reportable Basophils % Not Reportable Absolute Neutrophils Not Reportable Absolute Lymphocytes Not Reportable Absolute Monocytes Not Reportable Absolute Eosinophils Not Reportable Absolute Basophils Not Reportable Sodium Potassium Chloride Carbon Dioxide Anion Gap BUN Creatinine Est GFR ( Amer) Est GFR (Non-Af Amer) Glucose Calcium Phosphorus Magnesium Transferrin Total Bilirubin AST ALT Alkaline Phosphatase Ammonia < 8.7 L Total Protein Albumin Amylase Lipase TSH Free T4 Blood Type O POSITIVE Antibody Screen NEGATIVE 01/13/18 01/13/18 06:38 08:00 WBC RBC Hgb Hct MCV MCH MCHC RDW Plt Count Seg Neutrophils % Lymphocytes % Monocytes % Eosinophils % Basophils % Absolute Neutrophils Absolute Lymphocytes Absolute Monocytes Absolute Eosinophils Absolute Basophils Sodium Cancelled 144.6 Potassium Cancelled 3.6 Chloride Cancelled 108 H Carbon Dioxide Cancelled 26 Anion Gap Cancelled 11 BUN Cancelled 14 Creatinine Cancelled 0.74 Est GFR ( Amer) Cancelled > 60 Est GFR (Non-Af Amer) Cancelled > 60 Glucose Cancelled 84 Calcium Cancelled 8.6 Phosphorus Magnesium Transferrin Total Bilirubin Cancelled 0.4 AST Cancelled 37 H ALT Cancelled 49 Alkaline Phosphatase Cancelled 164 H Ammonia Total Protein Cancelled 6.1 L Albumin Cancelled 2.9 L Amylase Lipase TSH Free T4 Blood Type Antibody Screen 01/12/18 01/12/18 01/12/18 20:36 20:36 20:36 Creatine Kinase 29 L CK-MB (CK-2) 0.60 Troponin I < 0.012 NT-Pro-B Natriuret Pep 466 H 01/13/18 01/13/18 01/13/18 02:25 02:25 08:00 Creatine Kinase 25 L 26 L CK-MB (CK-2) 0.52 Troponin I < 0.012 NT-Pro-B Natriuret Pep 01/13/18 08:00 Creatine Kinase CK-MB (CK-2) 0.72 Troponin I < 0.012 NT-Pro-B Natriuret Pep Impressions: Cervical Spine MRI 01/12/18 00:00 IMPRESSION: 6.2 CM COMPLEX FLUID COLLECTION WITHIN THE PREVERTEBRAL SPACE EXTENDING FROM C2-3 C5 COMPATIBLE WITH PHLEGMON/ABSCESS. SURGICAL CONSULTATION IS RECOMMENDED. 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 THERE IS ACUTE ON CHRONIC ENDPLATE CHANGE AT C5-C6 WITHOUT DEFINITE MR EVIDENCE OF OSTEOMYELITIS. Chest X-Ray 01/12/18 00:00 IMPRESSION: NO ACUTE RADIOGRAPHIC FINDING IN THE CHEST. 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 Qualified Code(s): D50.0 - Iron deficiency anemia secondary to blood loss (chronic) Is this a current diagnosis for this admission?: Yes (4) Undernutrition Is this a current diagnosis for this admission?: Yes (5) Osteoporosis Qualifiers: Osteoporosis type: age-related Is this a current diagnosis for this admission?: Yes (6) Hydrocephalus Is this a current diagnosis for this admission?: Yes (7) Dementia Qualifiers: Dementia type: unspecified type Dementia behavioral disturbance: without behavioral disturbance Qualified Code(s): F03.90 - Unspecified dementia without behavioral disturbance Is this a current diagnosis for this admission?: Yes - Plan Summary Plan Summary: Continue treatment
[2018-01-13] MEDS: ATORVASTATIN CALCIUM 10 MG TABLET PO SCH (23:30)
[2018-01-13] MEDS: MIRTAZAPINE 15 MG TABLET PO SCH (23:31)
[2018-01-14] MEDS: AMPICILLIN SODIUM/SULBACTAM NA 3 GM in NORMAL SALINE 100 ML IV SCH (06:27)
[2018-01-14] MEDS: LANSOPRAZOLE 15 MG TAB.RAP.DR PO SCH (06:28)
[2018-01-14] MEDS: ACETAMINOPHEN 325 MG TABLET PO SCH ×3 (06:28→23:00)
[2018-01-14 07:11] LABS: HEMATOCRIT 30.7 % (36.0-47.0); HEMOGLOBIN 10.2 g/dL (12.0-15.5); MEAN CORPUSCULAR HGB CONC 33.3 g/dL (32.0-36.0); MEAN CORPUSCULAR VOLUME 78 fl (80-97); PLATELET COUNT 520 10^3/uL (150-450); RED BLOOD COUNT 3.93 10^6/uL (3.72-5.28); RED CELL DISTRIBUTION WIDTH 16.7 % (11.5-14.0); WHITE BLOOD COUNT 7.2 10^3/uL (4.0-10.5)
[2018-01-14 07:55] LABS: ABSOLUTE LYMPHOCYTES# (MANUAL) 1.9 10^3/uL (0.5-4.7); ABSOLUTE MONOCYTES # (MANUAL) 0.4 10^3/uL (0.1-1.4); ABSOLUTE NEUTROPHILS# (MANUAL) 4.3 10^3/uL (1.7-8.2); BASOPHILS % (MANUAL) 3 % (0-2); EOSINOPHILS % (MANUAL) 4 % (0-6); LYMPHOCYTES % (MANUAL) 27 % (13-45); MONOCYTES % (MANUAL) 6 % (3-13); SEGMENTED NEUTROPHILS % (MAN) 60 % (42-78); TOTAL CELLS COUNTED 100
[2018-01-14 07:57] LABS: ANISOCYTOSIS 1+; HYPOCHROMASIA SLIGHT; OVALOCYTES SLIGHT; POIKILOCYTOSIS SLIGHT; POLYCHROMASIA SLIGHT
[2018-01-14 07:58] LABS: PLATELET COMMENT INCREASED; PLATELET LARGE PRESENT
[2018-01-14] MEDS: CALCIUM CARBONATE 250 MG/VITAMIN D3 125 UNIT TABLET PO SCH ×2 (09:26→18:08)
[2018-01-14] MEDS: ALENDRONATE SODIUM 10 MG TABLET PO SCH (09:26)
[2018-01-14] MEDS: CETIRIZINE 10 MG TABLET PO SCH (09:26)
[2018-01-14] MEDS: FAMOTIDINE 20 MG TABLET PO SCH ×2 (09:26→18:08)
[2018-01-14] MEDS: POLYETHYLENE GLYCOL 3350 POWDER 17 GM/1 PACKET PO SCH (09:27)
[2018-01-14] MEDS: PAROXETINE HCL 20 MG TABLET PO SCH (09:27)
[2018-01-14] MEDS: DOCUSATE SODIUM 100 MG CAPSULE PO SCH ×2 (09:27→18:08)
[2018-01-14] MEDS: MULTIVITAMIN TABLET PO SCH (09:27)
[2018-01-14] MEDS: OXYBUTYNIN CHLORIDE 5 MG TABLET PO SCH (09:27)
[2018-01-14] MEDS: MEMANTINE HCL 10 MG TABLET PO SCH (09:27)
[2018-01-14] MEDS: SERTRALINE HCL 50 MG TABLET PO SCH (09:27)
[2018-01-14] MEDS: ENOXAPARIN SODIUM INJ 40 MG/0.4 ML DISP.SYRIN SUBCUT SCH (09:28)
--- NOTE | 2018-01-14 10:07 | PDOC PROGRESS REPORT ---
Subjective Reason For Visit: ABSCESS IN THE ANTERIOR CHEST WALL AND THE NECK Physical Exam Vital Signs: Temp Pulse Resp BP Pulse Ox 98.1 F 61 14 150/79 H 98 01/14/18 07:57 01/14/18 07:57 01/14/18 07:57 01/14/18 07:57 01/14/18 07:57 Intake & Output 01/13/18 01/14/18 01/15/18 06:59 06:59 06:59 Intake Total 1959 2072 Output Total Balance 1954 2072 Weight 50 kg 49.8 kg Results Laboratory Results: 01/14/18 05:57 01/13/18 08:00 01/12/18 01/14/18 03:49 05:57 WBC 7.2 RBC 3.93 Hgb 10.2 L Hct 30.7 L MCV 78 L MCH 26.0 L MCHC 33.3 RDW 16.7 H Plt Count 520 H Seg Neutrophils % Not Reportable Lymphocytes % Not Reportable Monocytes % Not Reportable Eosinophils % Not Reportable Basophils % Not Reportable Absolute Neutrophils Not Reportable Absolute Lymphocytes Not Reportable Absolute Monocytes Not Reportable Absolute Eosinophils Not Reportable Absolute Basophils Not Reportable Transferrin 143 L 01/12/18 01/12/18 01/12/18 20:36 20:36 20:36 Creatine Kinase 29 L CK-MB (CK-2) 0.60 Troponin I < 0.012 NT-Pro-B Natriuret Pep 466 H 01/13/18 01/13/18 01/13/18 02:25 02:25 08:00 Creatine Kinase 25 L 26 L CK-MB (CK-2) 0.52 Troponin I < 0.012 NT-Pro-B Natriuret Pep 01/13/18 08:00 Creatine Kinase CK-MB (CK-2) 0.72 Troponin I < 0.012 NT-Pro-B Natriuret Pep Impressions: Cervical Spine MRI 01/12/18 00:00 IMPRESSION: 6.2 CM COMPLEX FLUID COLLECTION WITHIN THE PREVERTEBRAL SPACE EXTENDING FROM C2-3 C5 COMPATIBLE WITH PHLEGMON/ABSCESS. SURGICAL CONSULTATION IS RECOMMENDED. 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 THERE IS ACUTE ON CHRONIC ENDPLATE CHANGE AT C5-C6 WITHOUT DEFINITE MR EVIDENCE OF OSTEOMYELITIS. Chest X-Ray 01/12/18 00:00 IMPRESSION: NO ACUTE RADIOGRAPHIC FINDING IN THE CHEST. Assessment & Plan - Plan Summary Plan Summary: 77-year-old female status post incision and drainage of a large chest wall abscess. Her white blood cell count is normal, she is afebrile, and she is doing well. Her cultures show Streptococcus. I will transition the patient to oral antibiotics. Continue damp to dry dressing changes twice daily with packing. The patient is cleared for discharge from a surgical standpoint. Follow-up with [facility] in 1 week. I will see the patient again on an as-needed basis. Please contact me with any new questions or concerns.
[2018-01-14] MEDS: SULFAMETHOXAZOLE/TRIMETHOPRIM 800-160 MG TABLET PO SCH ×2 (11:15→18:09)
--- NOTE | 2018-01-14 12:23 | PDOC PROGRESS REPORT ---
Subjective Progress Note for:: 01/14/18 Subjective:: She has iron deficiency anemia status post blood transfusion, she lives in [facility] she would need a colonoscopy on or EGD for further evaluation of the deficiency anemia before she is discharge Reason For Visit: ABSCESS IN THE ANTERIOR CHEST WALL AND THE NECK Physical Exam Vital Signs: Temp Pulse Resp BP Pulse Ox 98.1 F 61 14 150/79 H 98 01/14/18 07:57 01/14/18 07:57 01/14/18 07:57 01/14/18 07:57 01/14/18 07:57 Intake & Output 01/13/18 01/14/18 01/15/18 06:59 06:59 06:59 Intake Total 1959 2072 300 Output Total 100 Balance 1954 2072 200 Weight 50 kg 49.8 kg General appearance: PRESENT: no acute distress Eye exam: PRESENT: PERRLA Respiratory exam: PRESENT: clear to auscultation aaron Cardiovascular exam: PRESENT: +S1, +S2 GI/Abdominal exam: PRESENT: soft Neurological exam: PRESENT: alert Results Laboratory Results: 01/14/18 05:57 01/13/18 08:00 01/14/18 05:57 WBC 7.2 RBC 3.93 Hgb 10.2 L Hct 30.7 L MCV 78 L MCH 26.0 L MCHC 33.3 RDW 16.7 H Plt Count 520 H Seg Neutrophils % Not Reportable Lymphocytes % Not Reportable Monocytes % Not Reportable Eosinophils % Not Reportable Basophils % Not Reportable Absolute Neutrophils Not Reportable Absolute Lymphocytes Not Reportable Absolute Monocytes Not Reportable Absolute Eosinophils Not Reportable Absolute Basophils Not Reportable 01/12/18 01/12/18 01/12/18 20:36 20:36 20:36 Creatine Kinase 29 L CK-MB (CK-2) 0.60 Troponin I < 0.012 NT-Pro-B Natriuret Pep 466 H 01/13/18 01/13/18 01/13/18 02:25 02:25 08:00 Creatine Kinase 25 L 26 L CK-MB (CK-2) 0.52 Troponin I < 0.012 NT-Pro-B Natriuret Pep 01/13/18 08:00 Creatine Kinase CK-MB (CK-2) 0.72 Troponin I < 0.012 NT-Pro-B Natriuret Pep Impressions: Cervical Spine MRI 01/12/18 00:00 IMPRESSION: 6.2 CM COMPLEX FLUID COLLECTION WITHIN THE PREVERTEBRAL SPACE EXTENDING FROM C2-3 C5 COMPATIBLE WITH PHLEGMON/ABSCESS. SURGICAL CONSULTATION IS RECOMMENDED. 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 THERE IS ACUTE ON CHRONIC ENDPLATE CHANGE AT C5-C6 WITHOUT DEFINITE MR EVIDENCE OF OSTEOMYELITIS. Chest X-Ray 01/12/18 00:00 IMPRESSION: NO ACUTE RADIOGRAPHIC FINDING IN THE CHEST. 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 Qualified Code(s): D50.0 - Iron deficiency anemia secondary to blood loss (chronic) Is this a current diagnosis for this admission?: Yes (4) Undernutrition Is this a current diagnosis for this admission?: Yes (5) Osteoporosis Qualifiers: Osteoporosis type: age-related Is this a current diagnosis for this admission?: Yes (6) Hydrocephalus Is this a current diagnosis for this admission?: Yes (7) Dementia Qualifiers: Dementia type: unspecified type Dementia behavioral disturbance: without behavioral disturbance Qualified Code(s): F03.90 - Unspecified dementia without behavioral disturbance Is this a current diagnosis for this admission?: Yes
[2018-01-14] MEDS: MIRTAZAPINE 15 MG TABLET PO SCH (23:00)
[2018-01-14] MEDS: ATORVASTATIN CALCIUM 10 MG TABLET PO SCH (23:00)
[2018-01-15 06:45] LABS: HEMATOCRIT 31.3 % (36.0-47.0); HEMOGLOBIN 10.4 g/dL (12.0-15.5); MEAN CORPUSCULAR HEMOGLOBIN 25.9 pg (27.0-33.4); MEAN CORPUSCULAR HGB CONC 33.3 g/dL (32.0-36.0); MEAN CORPUSCULAR VOLUME 78 fl (80-97); PLATELET COUNT 500 10^3/uL (150-450); RED BLOOD COUNT 4.02 10^6/uL (3.72-5.28); RED CELL DISTRIBUTION WIDTH 17.3 % (11.5-14.0); WHITE BLOOD COUNT 6.1 10^3/uL (4.0-10.5)
[2018-01-15 07:11] LABS: ABSOLUTE LYMPHOCYTES# (MANUAL) 0.9 10^3/uL (0.5-4.7); ABSOLUTE MONOCYTES # (MANUAL) 0.7 10^3/uL (0.1-1.4); ABSOLUTE NEUTROPHILS# (MANUAL) 3.9 10^3/uL (1.7-8.2); BAND NEUTROPHILS % (MANUAL) 1 % (3-5); BASOPHILS % (MANUAL) 0 % (0-2); EOSINOPHILS % (MANUAL) 9 % (0-6); LYMPHOCYTES % (MANUAL) 15 % (13-45); METAMYELOCYTES % (MANUAL) 1 % (0); MONOCYTES % (MANUAL) 12 % (3-13); PLATELET COMMENT INCREASED; PLATELET LARGE PRESENT; SEGMENTED NEUTROPHILS % (MAN) 62 % (42-78); TOTAL CELLS COUNTED 100; TOXIC GRANULATION 1+; TOXIC VACUOLATION PRESENT
[2018-01-15 07:12] LABS: ANISOCYTOSIS 2+; HYPOCHROMASIA 1+; POLYCHROMASIA SLIGHT
[2018-01-15] MEDS: ACETAMINOPHEN 325 MG TABLET PO SCH ×3 (08:36→22:21)
[2018-01-15] MEDS: LANSOPRAZOLE 15 MG TAB.RAP.DR PO SCH (08:36)
[2018-01-15] MEDS: FAMOTIDINE 20 MG TABLET PO SCH ×2 (09:56→18:41)
[2018-01-15] MEDS: SULFAMETHOXAZOLE/TRIMETHOPRIM 800-160 MG TABLET PO SCH ×2 (09:56→18:41)
[2018-01-15] MEDS: ALENDRONATE SODIUM 10 MG TABLET PO SCH (09:56)
[2018-01-15] MEDS: CALCIUM CARBONATE 250 MG/VITAMIN D3 125 UNIT TABLET PO SCH ×2 (09:56→18:41)
[2018-01-15] MEDS: SERTRALINE HCL 50 MG TABLET PO SCH (09:56)
[2018-01-15] MEDS: DOCUSATE SODIUM 100 MG CAPSULE PO SCH ×2 (09:56→18:40)
[2018-01-15] MEDS: CETIRIZINE 10 MG TABLET PO SCH (09:56)
[2018-01-15] MEDS: MULTIVITAMIN TABLET PO SCH (09:56)
[2018-01-15] MEDS: PAROXETINE HCL 20 MG TABLET PO SCH (09:56)
[2018-01-15] MEDS: MEMANTINE HCL 10 MG TABLET PO SCH (09:57)
[2018-01-15] MEDS: OXYBUTYNIN CHLORIDE 5 MG TABLET PO SCH (09:57)
[2018-01-15] MEDS: POLYETHYLENE GLYCOL 3350 POWDER 17 GM/1 PACKET PO SCH (09:58)
[2018-01-15] MEDS: ENOXAPARIN SODIUM INJ 40 MG/0.4 ML DISP.SYRIN SUBCUT SCH (09:58)
--- NOTE | 2018-01-15 13:54 | PDOC CONSULTATION ---
Consultation Consult Date: 01/15/18 Attending physician:: RUBEN DELANEY Consult reason:: iron deficiency anemia History of Present Illness Admission Date/PCP: 01/11/18 23:54 LISSETTE THOMPSON MD History of Present Illness: JORGITO FAULKNER is a 77 year old female I am asked to see this patient originally on the surgical service had I &D of an abscess noted to have anemia, iron deficiency transfused with PRBC, starting to decrease patient does not note any blood in her stools thinks that she had had a colonoscopy in the past but cannot remember when patient denies any early satiety willing to proceed with GI evaluation Past Medical History Cardiac Medical History: Denies: Coronary Artery Disease, Myocardial Infarction, Hypertension Pulmonary Medical History: Reports: Chronic Obstructive Pulmonary Disease (COPD) , Pneumonia Denies: Asthma, Bronchitis Neurological Medical History: Denies: Seizures Endocrine Medical History: Reports: Other - Osteoporosis Musculoskeltal Medical History: Reports: Arthritis - osteo Hematology: Denies: Anemia - hx Past Surgical History Past Surgical History: Denies: Hysterectomy Social History Lives with: Other - [employer] Smoking Status: Current Some Day Smoker Frequency of Alcohol Use: None Hx Recreational Drug Use: No Drugs: None Hx Prescription Drug Abuse: No - Advance Directive Resuscitation Status: Full Code Family History Family History: Reviewed & Not Pertinent Parental Family History Reviewed: Yes Children Family History Reviewed: Unknown Sibling(s) Family History Reviewed.: Unknown Medication/Allergy Home Medications: Acetaminophen [Tylenol Extra Strength 500 mg Tablet] 1,000 mg PO Q8 01/12/18 Alendronate Sodium [Fosamax 10 mg Tablet] 10 mg PO ACBRKFST 01/12/18 Calcium Carbonate/Vitamin D3 [Oyster Shell 500-Vit D3 200 Tb] 1 tab PO BID 01/12 Cetirizine HCl [Zyrtec 10 mg Tablet] 10 mg PO DAILY 01/12/18 Doxycycline Hyclate [Vibramycin] 50 mg PO BID 01/12/18 Famotidine [Pepcid 20 mg Tablet] 20 mg PO BID 01/12/18 Lorazepam [Ativan 0.5 mg Tablet] 0.25 mg PO DAILYP PRN 01/12/18 Memantine HCl [Namenda] 5 mg PO DAILY 01/12/18 Mirtazapine [Remeron 15 mg Tablet] 7.5 mg PO QHS 01/12/18 Multivitamin [Tab-A-Willie (Multiple Vitamin) Tablet] 1 tab PO DAILY 01/12/18 Omeprazole 20 mg PO DAILY 01/12/18 Oxybutynin Chloride [Ditropan 5 mg Tablet] 5 mg PO DAILY 01/12/18 Paroxetine HCl [Paxil 20 mg Tablet] 20 mg PO DAILY 01/12/18 Polyethylene Glycol 3350 [Miralax Powder 17 gm/Packet] 17 gm PO DAILY 01/12/18 Pravastatin Sodium [Pravachol] 40 mg PO DAILY 01/12/18 Sennosides [Senna] 17.2 mg PO DAILYP PRN 01/12/18 Sertraline HCl [Zoloft 50 mg Tablet] 50 mg PO DAILY 01/12/18 Allergies/Adverse Reactions: epinephrine [Epinephrine] Adverse Reaction (Mild, Verified 01/11/18 18:47) jittery Review of Systems Constitutional: ABSENT: fever(s), headache(s), night sweats, weakness Eyes: ABSENT: visual disturbances Ears: ABSENT: hearing changes Nose, Mouth, and Throat: ABSENT: mouth pain, sore throat Cardiovascular: ABSENT: edema, orthropnea Respiratory: ABSENT: dyspnea, hemoptysis Gastrointestinal: ABSENT: diarrhea, melena, nausea, vomiting Genitourinary: ABSENT: dysuria, hematuria Musculoskeletal: ABSENT: deformity Neurological: ABSENT: syncope, tingling, tremor(s), vertigo Endocrine: ABSENT: polydipsia, polyphagia, polyuria Hematologic/Lymphatic: ABSENT: easy bruising Physical Exam Vital Signs: Temp Pulse Resp BP Pulse Ox 98.7 F 59 L 16 138/43 H 96 01/15/18 08:17 01/15/18 08:17 01/15/18 08:17 01/15/18 08:17 01/15/18 08:17 Intake & Output 01/14/18 01/15/18 01/16/18 06:59 06:59 06:59 Intake Total 2072 2090 Output Total 200 Balance 2072 1890 Weight 49.8 kg 48.9 kg General appearance: PRESENT: no acute distress, well-developed, well-nourished Head exam: PRESENT: atraumatic, normocephalic Eye exam: PRESENT: EOMI, nystagmus, PERRLA Mouth exam: PRESENT: neck supple, tongue midline Throat exam: ABSENT: tonsillar exudate, tonsillogmegaly Neck exam: ABSENT: meningismus, tenderness, thyromegaly Respiratory exam: PRESENT: symmetrical, unlabored. ABSENT: tachypnea, wheezes Cardiovascular exam: PRESENT: RRR, +S1, +S2 GI/Abdominal exam: PRESENT: soft. ABSENT: rebound, rigid, tenderness Gentrourinary exam: ABSENT: lesions Extremities exam: ABSENT: joint swelling Musculoskeletal exam: PRESENT: full ROM Neurological exam: PRESENT: oriented to time, oriented to situation, CN II-XII grossly intact Focused psych exam: ABSENT: restlessness Skin exam: PRESENT: normal color. ABSENT: mottled, pallor, urticaria, vesicles Results Laboratory Results: 01/15/18 05:56 01/13/18 08:00 01/15/18 05:56 WBC 6.1 RBC 4.02 Hgb 10.4 L Hct 31.3 L MCV 78 L MCH 25.9 L MCHC 33.3 RDW 17.3 H Plt Count 500 H Seg Neutrophils % Not Reportable Lymphocytes % Not Reportable Monocytes % Not Reportable Eosinophils % Not Reportable Basophils % Not Reportable Absolute Neutrophils Not Reportable Absolute Lymphocytes Not Reportable Absolute Monocytes Not Reportable Absolute Eosinophils Not Reportable Absolute Basophils Not Reportable 01/12/18 12:05 Neck - Abscess Gram Stain - Final 01/12/18 12:05 Neck - Abscess Wound Culture - Final Group A Beta Streptococcus No Anaerobic Organisms 01/12/18 01/12/18 01/12/18 20:36 20:36 20:36 Creatine Kinase 29 L CK-MB (CK-2) 0.60 Troponin I < 0.012 NT-Pro-B Natriuret Pep 466 H 01/13/18 01/13/18 01/13/18 02:25 02:25 08:00 Creatine Kinase 25 L 26 L CK-MB (CK-2) 0.52 Troponin I < 0.012 NT-Pro-B Natriuret Pep 01/13/18 08:00 Creatine Kinase CK-MB (CK-2) 0.72 Troponin I < 0.012 NT-Pro-B Natriuret Pep Impressions: Cervical Spine MRI 01/12/18 00:00 IMPRESSION: 6.2 CM COMPLEX FLUID COLLECTION WITHIN THE PREVERTEBRAL SPACE EXTENDING FROM C2-3 C5 COMPATIBLE WITH PHLEGMON/ABSCESS. SURGICAL CONSULTATION IS RECOMMENDED. 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 THERE IS ACUTE ON CHRONIC ENDPLATE CHANGE AT C5-C6 WITHOUT DEFINITE MR EVIDENCE OF OSTEOMYELITIS. Chest X-Ray 01/12/18 00:00 IMPRESSION: NO ACUTE RADIOGRAPHIC FINDING IN THE CHEST. Assessment & Plan - Diagnosis (1) Iron deficiency anemia Qualifiers: Iron deficiency anemia type: chronic blood loss Qualified Code(s): D50.0 - Iron deficiency anemia secondary to blood loss (chronic) Is this a current diagnosis for this admission?: Yes Plan: will need GI evaluation to exclude source of GI bleeding Risks, benefits and alternatives are discussed with the patient in detail she is willing to proceed will schedule with Propofol sedation patient is willing to proceed - Time Time Spent: 50 to 70 Minutes
[2018-01-15] MEDS ORDERED: PEG 3350/NA SULF,BICARB,CL/KCL 4000 ML PO ONE ×2 (15:00→16:00)
[2018-01-15] MEDS ORDERED: MAGNESIUM CITRATE 296 ML BOTTLE PO ONE ×2 (18:00→20:00)
[2018-01-15] MEDS ORDERED: BISACODYL 5 MG TABEC PO ONE ×2 (18:00→20:00)
--- NOTE | 2018-01-15 20:53 | PDOC PROGRESS REPORT ---
Subjective Progress Note for:: 01/15/18 Subjective:: She was seen by GI regarding iron deficiency anemia she is scheduled for colonoscopy in the morning Reason For Visit: ABSCESS IN THE ANTERIOR CHEST WALL AND THE NECK Physical Exam Vital Signs: Temp Pulse Resp BP Pulse Ox 97.8 F 57 L 16 145/52 H 94 01/15/18 19:48 01/15/18 19:48 01/15/18 19:48 01/15/18 19:48 01/15/18 19:48 Intake & Output 01/14/18 01/15/18 01/16/18 06:59 06:59 06:59 Intake Total 2072 2090 810 Output Total 200 Balance 2072 189 810 Weight 49.8 kg 48.9 kg General appearance: PRESENT: no acute distress Eye exam: PRESENT: PERRLA Respiratory exam: PRESENT: clear to auscultation aaron Cardiovascular exam: PRESENT: +S1, +S2 GI/Abdominal exam: PRESENT: soft Neurological exam: PRESENT: alert Results Laboratory Results: 01/15/18 05:56 01/13/18 08:00 01/15/18 05:56 WBC 6.1 RBC 4.02 Hgb 10.4 L Hct 31.3 L MCV 78 L MCH 25.9 L MCHC 33.3 RDW 17.3 H Plt Count 500 H Seg Neutrophils % Not Reportable Lymphocytes % Not Reportable Monocytes % Not Reportable Eosinophils % Not Reportable Basophils % Not Reportable Absolute Neutrophils Not Reportable Absolute Lymphocytes Not Reportable Absolute Monocytes Not Reportable Absolute Eosinophils Not Reportable Absolute Basophils Not Reportable 01/12/18 12:05 Neck - Abscess Gram Stain - Final 01/12/18 12:05 Neck - Abscess Wound Culture - Final Group A Beta Streptococcus No Anaerobic Organisms 01/12/18 01/12/18 01/12/18 20:36 20:36 20:36 Creatine Kinase 29 L CK-MB (CK-2) 0.60 Troponin I < 0.012 NT-Pro-B Natriuret Pep 466 H 01/13/18 01/13/18 01/13/18 02:25 02:25 08:00 Creatine Kinase 25 L 26 L CK-MB (CK-2) 0.52 Troponin I < 0.012 NT-Pro-B Natriuret Pep 01/13/18 08:00 Creatine Kinase CK-MB (CK-2) 0.72 Troponin I < 0.012 NT-Pro-B Natriuret Pep Impressions: Cervical Spine MRI 01/12/18 00:00 IMPRESSION: 6.2 CM COMPLEX FLUID COLLECTION WITHIN THE PREVERTEBRAL SPACE EXTENDING FROM C2-3 C5 COMPATIBLE WITH PHLEGMON/ABSCESS. SURGICAL CONSULTATION IS RECOMMENDED. 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 THERE IS ACUTE ON CHRONIC ENDPLATE CHANGE AT C5-C6 WITHOUT DEFINITE MR EVIDENCE OF OSTEOMYELITIS. Chest X-Ray 01/12/18 00:00 IMPRESSION: NO ACUTE RADIOGRAPHIC FINDING IN THE CHEST. 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 Qualified Code(s): D50.0 - Iron deficiency anemia secondary to blood loss (chronic) Is this a current diagnosis for this admission?: Yes (4) Undernutrition Is this a current diagnosis for this admission?: Yes (5) Osteoporosis Qualifiers: Osteoporosis type: age-related Is this a current diagnosis for this admission?: Yes (6) Hydrocephalus Is this a current diagnosis for this admission?: Yes (7) Dementia Qualifiers: Dementia type: unspecified type Dementia behavioral disturbance: without behavioral disturbance Qualified Code(s): F03.90 - Unspecified dementia without behavioral disturbance Is this a current diagnosis for this admission?: Yes
[2018-01-15] MEDS: MIRTAZAPINE 15 MG TABLET PO SCH (22:20)
[2018-01-15] MEDS: ATORVASTATIN CALCIUM 10 MG TABLET PO SCH (22:21)
[2018-01-16] MEDS: LANSOPRAZOLE 15 MG TAB.RAP.DR PO SCH (05:24)
[2018-01-16] MEDS: ACETAMINOPHEN 325 MG TABLET PO SCH ×3 (05:24→21:07)
[2018-01-16] MEDS: DOCUSATE SODIUM 100 MG CAPSULE PO SCH ×2 (11:05→17:31)
[2018-01-16] MEDS: FAMOTIDINE 20 MG TABLET PO SCH ×2 (11:05→17:31)
[2018-01-16] MEDS: PAROXETINE HCL 20 MG TABLET PO SCH (11:06)
[2018-01-16] MEDS: CETIRIZINE 10 MG TABLET PO SCH (11:06)
[2018-01-16] MEDS: CALCIUM CARBONATE 250 MG/VITAMIN D3 125 UNIT TABLET PO SCH ×2 (11:06→17:31)
[2018-01-16] MEDS: MEMANTINE HCL 10 MG TABLET PO SCH (11:06)
[2018-01-16] MEDS: SULFAMETHOXAZOLE/TRIMETHOPRIM 800-160 MG TABLET PO SCH ×2 (11:07→17:32)
[2018-01-16] MEDS: MULTIVITAMIN TABLET PO SCH (11:07)
[2018-01-16] MEDS: OXYBUTYNIN CHLORIDE 5 MG TABLET PO SCH (11:07)
[2018-01-16] MEDS: SERTRALINE HCL 50 MG TABLET PO SCH (11:08)
[2018-01-16] MEDS: POLYETHYLENE GLYCOL 3350 POWDER 17 GM/1 PACKET PO SCH (11:10)
[2018-01-16] MEDS: ENOXAPARIN SODIUM INJ 40 MG/0.4 ML DISP.SYRIN SUBCUT SCH (11:10)
[2018-01-16] MEDS: ALENDRONATE SODIUM 10 MG TABLET PO SCH (11:37)
[2018-01-16] MEDS ORDERED: PROPOFOL INJ 200 MG/20 ML VIAL IV ONE ×2 (14:24→14:26)
[2018-01-16] MEDS ORDERED: LIDOCAINE 2% INJ-PF (20 MG/ML) 10 ML AMPUL ONE (14:25)
[2018-01-16] MEDS ORDERED: FENTANYL CITRATE INJ/PF 100 MCG/2 ML AMPUL ONE (14:25)
[2018-01-16] MEDS ORDERED: MIDAZOLAM 2 MG/2 ML INJ ONE (14:26)
[2018-01-16] MEDS ORDERED: ONDANSETRON HCL INJ/PF 4 MG/2 ML SDV ONE (14:26)
[2018-01-16] MEDS ORDERED: DEXAMETHASONE SOD PHOSPHATE INJ 4 MG/1 ML VIAL ONE (14:26)
[2018-01-16] MEDS ORDERED: MORPHINE SULFATE 10 MG/ML INJ IV PRN (15:05)
[2018-01-16] MEDS ORDERED: DIPHENHYDRAMINE HCL 50 MG/ML VIAL IV PRN (15:05)
[2018-01-16] MEDS ORDERED: OXYCODONE-ACETAMINOPHEN 5-325 MG TABLET PO PRN ×2 (15:05)
[2018-01-16] MEDS ORDERED: PROMETHAZINE HCL INJ 25 MG/1 ML VIAL IV PRN ×2 (15:05)
[2018-01-16] MEDS ORDERED: MEPERIDINE HCL/PF INJ 25 MG/1 ML DISP.SYRIN IV PRN (15:05)
[2018-01-16] MEDS ORDERED: FENTANYL CITRATE INJ/PF 100 MCG/2 ML AMPUL IV PRN ×3 (15:05)
--- NOTE | 2018-01-16 15:17 | Operative Report ---
Operative Report DATE OF SURGERY: 01/16/18 Operative Report: The risks, benefits and alternatives of the procedure including risks of bleeding, perforation requiring surgery are explained to the patient in detail and informed consent was obtained. Patient was taken to the operating room and placed in a left, lateral decubital position. Timeout was called. Propofol medications administered. A rectal examination is done which did not reveal any masses, tears or fissures. An Olympus videoscope was inserted into the patient's rectum. The scope was then carefully advanced all the way to the cecum. The cecum was identified by the usual anatomical landmarks including the ileocecal valve as well as the appendiceal office. Photodocumentation is obtained. The prep is reasonably good. The scope is then sequentially pulled back via the various segments of the colon including the ascending colon, hepatic flexure, transverse colon, splenic flexure, descending colon and finally into the rectosigmoid portions of the colon. Retroflexion maneuvers performed. The risks benefits and alternatives of the procedure explained to the patient in detail and informed consent is obtained.A GIF Olympus video scope was inserted into the patient's mouth and hypopharynx, the esophagus is identified intubated and insufflated the scope was then advanced through the esophagus stomach and duodenum, retroflexion maneuver is done the esophagus stomach and first and second portions of the duodenum examined PREOPERATIVE DIAGNOSIS: 1. Iron deficiency anemia rule out GI bleed POSTOPERATIVE DIAGNOSIS: Right side colon Information status post biopsy. Internal hemorrhoids. Gastritis status post biopsy. Hiatal hernia OPERATION: 1. Colonoscopy with biopsy. 2. EGD with biopsy SURGEON: RUBEN DELANEY ANESTHESIA: LMAC TISSUE REMOVED OR ALTERED: As noted above. COMPLICATIONS: None. ESTIMATED BLOOD LOSS: None. INTRAOPERATIVE FINDINGS: As noted above. PROCEDURE: Patient tolerated procedure well. No immediate postprocedure complications are noted. Patient sent back to her room in good condition. Resume regular diet. Resume regular activity level. We will wait on pathology. Further recommendations to follow. No source of GI bleeding identified Iron deficiency anemia likely due to chronic courses
[2018-01-16] MEDS: MIRTAZAPINE 15 MG TABLET PO SCH (21:06)
[2018-01-16] MEDS: ATORVASTATIN CALCIUM 10 MG TABLET PO SCH (21:07)
--- NOTE | 2018-01-16 21:32 | PDOC PROGRESS REPORT ---
Subjective Progress Note for:: 01/16/18 Subjective:: Patient was seen by the bedside, there is no new complaints Reason For Visit: ABSCESS IN THE ANTERIOR CHEST WALL AND THE NECK Physical Exam Vital Signs: Temp Pulse Resp BP Pulse Ox 98.0 F 76 16 147/67 H 95 01/16/18 19:02 01/16/18 19:02 01/16/18 19:02 01/16/18 19:02 01/16/18 19:02 Intake & Output 01/15/18 01/16/18 01/17/18 06:59 06:59 06:59 Intake Total 2091 1503 1150 Output Total 200 Balance 1891 1503 1150 Weight 48.9 kg 48.3 kg General appearance: PRESENT: no acute distress Eye exam: PRESENT: PERRLA Respiratory exam: PRESENT: clear to auscultation aaron Cardiovascular exam: PRESENT: +S1, +S2 GI/Abdominal exam: PRESENT: soft Neurological exam: PRESENT: alert Results Laboratory Results: 01/15/18 05:56 01/13/18 08:00 01/12/18 01/12/18 01/12/18 20:36 20:36 20:36 Creatine Kinase 29 L CK-MB (CK-2) 0.60 Troponin I < 0.012 NT-Pro-B Natriuret Pep 466 H 01/13/18 01/13/18 01/13/18 02:25 02:25 08:00 Creatine Kinase 25 L 26 L CK-MB (CK-2) 0.52 Troponin I < 0.012 NT-Pro-B Natriuret Pep 01/13/18 08:00 Creatine Kinase CK-MB (CK-2) 0.72 Troponin I < 0.012 NT-Pro-B Natriuret Pep Impressions: Cervical Spine MRI 01/12/18 00:00 IMPRESSION: 6.2 CM COMPLEX FLUID COLLECTION WITHIN THE PREVERTEBRAL SPACE EXTENDING FROM C2-3 C5 COMPATIBLE WITH PHLEGMON/ABSCESS. SURGICAL CONSULTATION IS RECOMMENDED. 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 THERE IS ACUTE ON CHRONIC ENDPLATE CHANGE AT C5-C6 WITHOUT DEFINITE MR EVIDENCE OF OSTEOMYELITIS. Chest X-Ray 01/12/18 00:00 IMPRESSION: NO ACUTE RADIOGRAPHIC FINDING IN THE CHEST. 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 Qualified Code(s): D50.0 - Iron deficiency anemia secondary to blood loss (chronic) Is this a current diagnosis for this admission?: Yes (4) Undernutrition Is this a current diagnosis for this admission?: Yes (5) Osteoporosis Qualifiers: Osteoporosis type: age-related Is this a current diagnosis for this admission?: Yes (6) Hydrocephalus Is this a current diagnosis for this admission?: Yes (7) Dementia Qualifiers: Dementia type: unspecified type Dementia behavioral disturbance: without behavioral disturbance Qualified Code(s): F03.90 - Unspecified dementia without behavioral disturbance Is this a current diagnosis for this admission?: Yes
[2018-01-17] MEDS: LANSOPRAZOLE 15 MG TAB.RAP.DR PO SCH (05:11)
[2018-01-17] MEDS: ACETAMINOPHEN 325 MG TABLET PO SCH ×2 (05:11→13:15)
[2018-01-17] MEDS: MEMANTINE HCL 10 MG TABLET PO SCH (11:06)
[2018-01-17] MEDS: ALENDRONATE SODIUM 10 MG TABLET PO SCH (11:06)
[2018-01-17] MEDS: MULTIVITAMIN TABLET PO SCH (11:06)
[2018-01-17] MEDS: SULFAMETHOXAZOLE/TRIMETHOPRIM 800-160 MG TABLET PO SCH ×2 (11:06→18:24)
[2018-01-17] MEDS: FAMOTIDINE 20 MG TABLET PO SCH ×2 (11:07→18:24)
[2018-01-17] MEDS: OXYBUTYNIN CHLORIDE 5 MG TABLET PO SCH (11:07)
[2018-01-17] MEDS: DOCUSATE SODIUM 100 MG CAPSULE PO SCH (11:07)
[2018-01-17] MEDS: PAROXETINE HCL 20 MG TABLET PO SCH (11:07)
[2018-01-17] MEDS: SERTRALINE HCL 50 MG TABLET PO SCH (11:07)
[2018-01-17] MEDS: CETIRIZINE 10 MG TABLET PO SCH (11:07)
[2018-01-17] MEDS: ENOXAPARIN SODIUM INJ 40 MG/0.4 ML DISP.SYRIN SUBCUT SCH (11:08)
[2018-01-17] MEDS: CALCIUM CARBONATE 250 MG/VITAMIN D3 125 UNIT TABLET PO SCH ×2 (11:08→18:24)
[2018-01-17] MEDS: POLYETHYLENE GLYCOL 3350 POWDER 17 GM/1 PACKET PO SCH (11:09)
--- NOTE | 2018-01-17 13:46 | PDOC TRANSFER SUMMARY ---
General - Admit/Disc Date/PCP Admission Date/Primary Care Provider: 01/11/18 23:54 LISSETTE THOMPSON MD Discharge Date: 01/17/18 - Discharge Diagnosis (1) Neck abscess Is this a current diagnosis for this admission?: Yes (2) Chest wall abscess Is this a current diagnosis for this admission?: Yes (3) Iron deficiency anemia Is this a current diagnosis for this admission?: Yes (4) Undernutrition Is this a current diagnosis for this admission?: Yes (5) Osteoporosis Is this a current diagnosis for this admission?: Yes (6) Hydrocephalus Is this a current diagnosis for this admission?: Yes (7) Dementia Is this a current diagnosis for this admission?: Yes (8) Sepsis Is this a current diagnosis for this admission?: Yes - Additional Information Resuscitation Status: Full Code Prescriptions: Sulfamethoxazole/Trimethoprim [Septra-Ds 800-160 mg Tablet] 1 tab PO BID #14 tablet Home Medications: Acetaminophen [Tylenol Extra Strength 500 mg Tablet] 1,000 mg PO Q8 01/12/18 Alendronate Sodium [Fosamax 10 mg Tablet] 10 mg PO ACBRKFST 01/12/18 Calcium Carbonate/Vitamin D3 [Oyster Shell 500-Vit D3 200 Tb] 1 tab PO BID 01/12 Cetirizine HCl [Zyrtec 10 mg Tablet] 10 mg PO DAILY 01/12/18 Lorazepam [Ativan 0.5 mg Tablet] 0.25 mg PO DAILYP PRN 01/12/18 Memantine HCl [Namenda] 5 mg PO DAILY 01/12/18 Mirtazapine [Remeron 15 mg Tablet] 7.5 mg PO QHS 01/12/18 Multivitamin [Tab-A-Willie (Multiple Vitamin) Tablet] 1 tab PO DAILY 01/12/18 Omeprazole 20 mg PO DAILY 01/12/18 Oxybutynin Chloride [Ditropan 5 mg Tablet] 5 mg PO DAILY 01/12/18 Paroxetine HCl [Paxil 20 mg Tablet] 20 mg PO DAILY 01/12/18 Polyethylene Glycol 3350 [Miralax Powder 17 gm/Packet] 17 gm PO DAILY 01/12/18 Pravastatin Sodium [Pravachol] 40 mg PO DAILY 01/12/18 Sennosides [Senna] 17.2 mg PO DAILYP PRN 01/12/18 Sertraline HCl [Zoloft 50 mg Tablet] 50 mg PO DAILY 01/12/18 Sulfamethoxazole/Trimethoprim [Septra-Ds 800-160 mg Tablet] 1 tab PO BID #14 tablet 01/17/18 History of Present Illness Admission Date/PCP: 01/11/18 23:54 LISSETTE THOMPSON MD History of Present Illness: JORGITO FAULKNER is a 77 year old female, She has baseline dementia, severe osteoporosis ,undernutrition she was referred from [facility] to the emergency room for evaluation and management of abscess in the anterior chest wall and the neck in the emergency room she was evaluated, CT of the neck was done showed a 4 x 4 x 5.4 cm complex heterogeneous mass/collection in the cutaneous soft tissue at the base of the neck anteriorly. She was also found to have severe leukocytosis, microcytic anemia.Patient is a poor historian, patient could not describe how this abscess started, the duration or the circumstances of the abscess. This morning, consultation was obtained from surgery, she was taken to the OR she underwent excisional debridement of the skin with breakup of loculations in the suprasternal area also was debridement drainage of the left preauricular abscess Hospital Course Hospital Course: Patient was admitted for the management of abscess involving the neck, the chest wall, she was seen by the surgeon she underwent incision and drainage, there was associated iron deficiency anemia, she was transfused with 2 units of packed red blood cells. Consultation was obtained from GI because of iron deficiency anemia, EGD and colonoscopy was done there was no ulcer or any neoplasm found. She was found to have right-sided colon inflammation. On admission there was sepsis due to abscess in the neck and the chest wall Physical Exam Vital Signs: Temp Pulse Resp BP Pulse Ox 97.9 F 57 L 18 108/47 L 96 01/17/18 07:36 01/17/18 07:36 01/17/18 07:36 01/17/18 07:36 01/17/18 07:36 Intake & Output 01/16/18 01/17/18 01/18/18 06:59 06:59 06:59 Intake Total 1503 2110 Balance 1503 2110 Weight 48.3 kg 49.2 kg General appearance: PRESENT: no acute distress Eye exam: PRESENT: PERRLA Respiratory exam: PRESENT: clear to auscultation aaron Cardiovascular exam: PRESENT: +S1, +S2 GI/Abdominal exam: PRESENT: soft Neurological exam: PRESENT: alert Results Laboratory Results: 01/15/18 05:56 01/13/18 08:00 01/12/18 01/12/18 01/12/18 20:36 20:36 20:36 Creatine Kinase 29 L CK-MB (CK-2) 0.60 Troponin I < 0.012 NT-Pro-B Natriuret Pep 466 H 01/13/18 01/13/18 01/13/18 02:25 02:25 08:00 Creatine Kinase 25 L 26 L CK-MB (CK-2) 0.52 Troponin I < 0.012 NT-Pro-B Natriuret Pep 01/13/18 08:00 Creatine Kinase CK-MB (CK-2) 0.72 Troponin I < 0.012 NT-Pro-B Natriuret Pep Impressions: Cervical Spine MRI 01/12/18 00:00 IMPRESSION: 6.2 CM COMPLEX FLUID COLLECTION WITHIN THE PREVERTEBRAL SPACE EXTENDING FROM C2-3 C5 COMPATIBLE WITH PHLEGMON/ABSCESS. SURGICAL CONSULTATION IS RECOMMENDED. 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 THERE IS ACUTE ON CHRONIC ENDPLATE CHANGE AT C5-C6 WITHOUT DEFINITE MR EVIDENCE OF OSTEOMYELITIS. Chest X-Ray 01/12/18 00:00 IMPRESSION: NO ACUTE RADIOGRAPHIC FINDING IN THE CHEST. Qualifiers - * PATIENT BEING DISCHARGED WITH ANY OF THE FOLLOWING DIAGNOSIS: No
[2018-01-17 16:05] VITALS: BP 114/50
--- NOTE | 2018-01-17 18:41 | PDOC PROGRESS REPORT ---
Subjective Progress Note for:: 01/17/18 Subjective:: no post procedure complications are noted abdomen exam is benign biopsies are negative patient denies any pain she is being transferred to SNF able to tolerated diet no GI bleeding is noted to explain her chronic anemia Reason For Visit: ABSCESS IN THE ANTERIOR CHEST WALL AND THE NECK Physical Exam Vital Signs: Temp Pulse Resp BP Pulse Ox 98.4 F 70 16 114/50 L 96 01/17/18 15:15 01/17/18 15:15 01/17/18 15:15 01/17/18 15:15 01/17/18 15:15 Intake & Output 01/16/18 01/17/18 01/18/18 06:59 06:59 06:59 Intake Total 1503 2110 680 Output Total 240 Balance 1503 2110 440 Weight 48.3 kg 49.2 kg General appearance: PRESENT: no acute distress, thin Head exam: PRESENT: atraumatic, normocephalic Eye exam: PRESENT: conjunctiva pink, PERRLA. ABSENT: scleral icterus Mouth exam: PRESENT: moist Throat exam: ABSENT: tonsillar exudate, tonsillogmegaly Neck exam: ABSENT: carotid bruit, JVD Respiratory exam: PRESENT: symmetrical. ABSENT: accessory muscle use, chest wall tenderness, tachypnea Cardiovascular exam: PRESENT: RRR, +S1, +S2 GI/Abdominal exam: PRESENT: soft. ABSENT: Boothe's sign, rebound, tenderness Extremities exam: ABSENT: joint swelling Musculoskeletal exam: PRESENT: full ROM Neurological exam: PRESENT: oriented to time, oriented to situation, CN II-XII grossly intact Focused psych exam: ABSENT: restlessness Skin exam: PRESENT: normal color. ABSENT: mottled, pallor, petechiae, urticaria , vesicles Results Laboratory Results: 01/15/18 05:56 01/13/18 08:00 01/12/18 01/12/18 01/12/18 20:36 20:36 20:36 Creatine Kinase 29 L CK-MB (CK-2) 0.60 Troponin I < 0.012 NT-Pro-B Natriuret Pep 466 H 01/13/18 01/13/18 01/13/18 02:25 02:25 08:00 Creatine Kinase 25 L 26 L CK-MB (CK-2) 0.52 Troponin I < 0.012 NT-Pro-B Natriuret Pep 01/13/18 08:00 Creatine Kinase CK-MB (CK-2) 0.72 Troponin I < 0.012 NT-Pro-B Natriuret Pep Impressions: Cervical Spine MRI 01/12/18 00:00 IMPRESSION: 6.2 CM COMPLEX FLUID COLLECTION WITHIN THE PREVERTEBRAL SPACE EXTENDING FROM C2-3 C5 COMPATIBLE WITH PHLEGMON/ABSCESS. SURGICAL CONSULTATION IS RECOMMENDED. 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 THERE IS ACUTE ON CHRONIC ENDPLATE CHANGE AT C5-C6 WITHOUT DEFINITE MR EVIDENCE OF OSTEOMYELITIS. Chest X-Ray 01/12/18 00:00 IMPRESSION: NO ACUTE RADIOGRAPHIC FINDING IN THE CHEST. Assessment & Plan - Diagnosis (1) Iron deficiency anemia Qualifiers: Iron deficiency anemia type: chronic blood loss Qualified Code(s): D50.0 - Iron deficiency anemia secondary to blood loss (chronic) Is this a current diagnosis for this admission?: Yes Plan: due to chronic causes but no GI bleeding is noted biopsies are negative has been transferred to SNF, patient can follow up as outpatient biopsies are discussed with her - Time Time Spent with patient: 15-24 minutes
== END 2018-01-17 18:55 | DRG 571 ==
LOC: ER 18:41 → EH 23:54 → 4S 01-12 01:45
PROVIDERS: ADMIT Internal Medicine; ATTEND Internal Medicine
PROC: 0JB50ZZ Excision of Left Neck Subcutaneous Tissue and Fascia, Open Approach (ICD-10-PCS; 2018-01-12)
PROC: 0HB3XZZ Excision of Left Ear Skin, External Approach (ICD-10-PCS; 2018-01-12)
PROC: 0JB60ZZ Excision of Chest Subcutaneous Tissue and Fascia, Open Approach (ICD-10-PCS; principal; 2018-01-12 13:30)
PROC: 30233N1 Transfusion of Nonautologous Red Blood Cells into Peripheral Vein, Percutaneous Approach (ICD-10-PCS; 2018-01-13)
PROC: 0DBF8ZX Excision of Right Large Intestine, Via Natural or Artificial Opening Endoscopic, Diagnostic (ICD-10-PCS; 2018-01-16)
PROC: 0DB78ZX Excision of Stomach, Pylorus, Via Natural or Artificial Opening Endoscopic, Diagnostic (ICD-10-PCS; 2018-01-16)
DX: L02.11 Cutaneous abscess of neck (principal); L02.213 Cutaneous abscess of chest wall; E46 Unspecified protein-calorie malnutrition; Z68.1 Body mass index [BMI] 19.9 or less, adult; G91.9 Hydrocephalus, unspecified; H60.02 Abscess of left external ear; D50.9 Iron deficiency anemia, unspecified; B95.0 Streptococcus, group A, as the cause of diseases classified elsewhere; M19.90 Unspecified osteoarthritis, unspecified site; K44.9 Diaphragmatic hernia without obstruction or gangrene; K29.70 Gastritis, unspecified, without bleeding; K64.8 Other hemorrhoids; F03.90 Unspecified dementia, unspecified severity, without behavioral disturbance, psychotic disturbance, mood disturbance, and anxiety; M81.0 Age-related osteoporosis without current pathological fracture; D72.829 Elevated white blood cell count, unspecified; J44.9 Chronic obstructive pulmonary disease, unspecified; F17.200 Nicotine dependence, unspecified, uncomplicated; Z88.8 Allergy status to other drugs, medicaments and biological substances
CPT/HCPCS: 300; 36415; 36430; 43239; 45380; 70491; 71045; 72156; 80048; 80053; 813; 82140; 82150; 82550; 82553; 82607; 82728; 82746; 83036; 83540; 83550; 83605; 83690; 83735; 83880; 84100; 84439; 84443; 84466; 84484; 85025; 85045; 85610; 85730; 86850; 86900; 86901; 86920; 87040; 87070; 87075; 87077; 87205; 88305; 88342; 93005; 93010; 96365; 96366; 99285; J0295; J1100; J1650; J2250; J2405; J2704; J3010; J3370; J3490; J7030; P9016